=== PATIENT | female | born 1970 | race Caucasian/White ===

== ENCOUNTER → 2016-11-13 | Outpatient (CLI) | payer OTHER | END | disposition home or self-care (01) | LOC: C.PAPS 13:46 | PROVIDERS: ATTEND Obstetrics & Gynecology | DX: Z12.4 Encounter for screening for malignant neoplasm of cervix (principal) ==

== ENCOUNTER 2025-06-26 16:56 | Inpatient (IN) ==
--- NOTE | 2025-06-26 18:00 | Emergency Department Note ---
Impression & Plan Pancreatitis, DKA (diabetic ketoacidosis), High anion gap metabolic acidosis, Sepsis ED Provider Note NAME: JASON STARK AGE: 54 SEX: F : 1970 ARRIVES VIA: Walk-In INFORMANT: Patient ED PROVIDER(S): Anibal Ronquillo MD CHIEF COMPLAINT: Abdominal pain, nausea, vomiting, history of pancreatitis PLAN: Disposition: Admit MEDICAL DECISION MAKING: The patient is a 54-year-old woman with a past medical history of pancreatitis who presents to the emergency department via walk-in for evaluation of fevers, nausea and vomiting with upper and lower abdominal pain as well as left flank pain evolving over the past week. She feels symptoms are reminiscent to her prior episode of pancreatitis and UTI which she reports occurred a couple of years ago. She denies any cough or congestion. She denies any alcohol use. She denies any history of chronic pain. Patient estimates that her prior admission to [facility] and then transferred to [facility] occurred in October 2022. On evaluation patient is uncomfortable but no distress, afebrile apart in the 120s and blood pressure 140s/70s and vital signs otherwise stable. She appears clinically dry. She exhibits mild epigastric and suprapubic tenderness without guarding or rebound. She demonstrates left flank pain to light touch. No rashes. EKG without overt acute ischemia. CXR negative for acute cardiopulmonary process per my personal preliminary review/interpretation. WBC 19K with neutrophilia and left shift. Hemoglobin within normal limits. Platelets 600 K, nonspecific and likely reactive. Initial VBG with acidemia with pH of 7.08 and chemistry with high anion gap metabolic acidosis with anion gap of 22 and bicarbonate of 12 with glucose of 582 and so consistent with DKA. Sodium is 122 but corrects to > 130 given hyperglycemia. Hemoglobin A1c is 14.3 in the setting of the patient reported of not taking any medications for her diabetes recently. Calcium is 13.1 consistent with the patient's clinically dry appearance. LFTs unremarkable. Lipase is elevated at 2500 consistent with pancreatitis. Procalcitonin is elevated at 0.87 consistent with infection. hCG was negative. UA demonstrates WBCs but no bacteria. Empiric antibiotic treatment initiated with IV ceftriaxone. Medical alcohol is undetectable. CT of the abdomen pelvis was performed and demonstrates evidence of pancreatitis without associated complication. The patient was treated for DKA with IV hydration with 2 L of normal saline, >30cc/KG of IV fluids in the setting of suspected component of sepsis. Insulin bolus and drip initiated. Maintenance fluids ordered with Normosol. Upon reevaluation patient did report feeling some improvement though understandably still feeling significantly sick. Case was discussed with Dr. Serna, [facility] hospitalist, who will evaluate the patient for admission. Case additionally reviewed with NIDIA Roberts PA-C. Further management per ICU and admitting team Triage Nursing notes reviewed and agree them. Prior/external medical records reviewed Vital Signs: reviewed Differential diagnosis: Gastroenteritis, food borne illness, infections, appendicitis, diverticulitis, inflammatory bowel disease, obstruction, GI bleed, biliary pathology, volvulus, as well as other pathologies. ER treatment provided: See below. Diagnostics interpreted by me: ECG: Sinus tachycardia, 123 bpm, no ectopy, ST and T wave abnormality, no overt ST elevation or depression, QTc 446, QRS 82. Cardiac Monitoring: An order for continuous cardiac monitoring was placed and demonstrated sinus tachycardia, 123 BPM, no ectopy. Laboratory studies: See below Imaging studies: See below Consultation(s): Dr. Serna [facility] hospitalist Gretchen Diana, TYLER JACOB. HPI: Per MDM. ROS: See above HPI for pertinent positives & negatives. A total of 10 systems reviewed and were otherwise negative. VITALS:See Below PHYSICAL EXAMINATION: GENERAL: Awake, alert, ill-appearing, in no distress HENT: Normocephalic, atraumatic. Oropharynx with dry mucous membranes and otherwise unremarkable. EYES: Normal conjunctiva. Sclera non-icteric. NECK: Supple. No nuchal rigidity. FROM. No JVD. RESPIRATORY: Clear to auscultation. CARDIAC: Tachycardic rate, normal rhythm. Extremities warm and well perfused. Pulses equal. ABDOMEN: Soft, non-distended. Mild epigastric and suprapubic tenderness without guarding or rebound. Left flank tenderness to light touch. MUSCULOSKELETAL: Chest examination reveals no tenderness. The back is symmetrical on inspection without obvious abnormality. There is no CVA tenderness to palpation. No joint edema. LOWER EXTREMITIES: Calves are equal size bilaterally and non-tender. No edema. No discoloration. NEURO: Normal sensorium. No sensory or motor deficits noted. SKIN: No rash or jaundice noted. ED COURSE: Critical Care: I have personally spent greater than 45 minutes of critical care time in the direct management of this patient. This includes bedside care, interpretation of diagnostic studies, and testing, discussion with consultants, patient, and family members, and other required patient management activities. This 45 minutes is in excess of all separately billable procedures. Anibal Ronquillo MD Past Med/Surg History Problem List (Updated 06/27/25 @ 19:46 by Anibal Ronquillo MD) Admitted to intensive care unit Sepsis (Acute) High anion gap metabolic acidosis (Acute) Pancreatitis (Acute) Tobacco abuse Ambulatory dysfunction Malnutrition Lactic acidosis Dehydration HERNANDEZ (acute kidney injury) DKA (diabetic ketoacidosis) (Acute) Uncontrolled diabetes mellitus with hyperglycemia, without long-term current use of insulin DMII (diabetes mellitus, type 2) Peripheral vascular disease Medical History Neuropathy GERD (gastroesophageal reflux disease) Anxiety and depression Surgical History No pertinent past surgical history Social History Smoking Status: Current every day smoker Tobacco Type: Cigarettes Cigarettes Per Day: 10 per day; Hx Alcohol Use: Yes Alcohol type: beer, wine and hard liquor Hx Substance Use: No Preferred Language: Croatian Communication Ability: Effective 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 Beliefs That Will Affect Care: None Current Living Situation: Spouse Other Information That Helps Us Care for You: No Feels Safe at Home: Yes Safety Concerns: Feels Safe At This Time Assistive Devices: Walker and Wheelchair Allergies Allergies Allergy/AdvReac Type Severity Reaction Status Date / Time No Known Allergies Allergy Verified 03/12/25 11:45 Home Meds Home Medications Medication Instructions Recorded Confirmed aspirin 325 mg tablet 325 mg PO BID 05/30/25 05/30/25 cholecalciferol (vitamin D3) 25 25 mcg PO DAILY 05/30/25 05/30/25 mcg (1,000 unit) capsule cyanocobalamin (vitamin B-12) 1,000 mcg PO DAILY 05/30/25 05/30/25 1,000 mcg capsule escitalopram oxalate 10 mg tablet 10 mg PO DAILY 05/30/25 05/30/25 (Lexapro) esomeprazole magnesium 20 mg 20 mg PO DAILY 05/30/25 05/30/25 capsule,delayed release (Nexium) folic acid 0.8 mg capsule 0.4 mg PO DAILY 05/30/25 05/30/25 gabapentin 100 mg capsule 100 mg PO HS 05/30/25 05/30/25 ibuprofen 600 mg tablet 600 mg PO Q8H PRN 05/30/25 05/30/25 magnesium oxide 400 mg (241.3 mg 400 mg PO DAILY 05/30/25 05/30/25 magnesium) tablet (MagOx) Results & Data (ED) Vital Signs Vital Signs - 24 hr 06/26/25 20:00 06/26/25 21:00 Pulse Rate [Apical] 106 H Respiratory Rate 16 Blood Pressure 194/95 H Blood Pressure Mean 152 Pulse Oximetry 97 Oxygen Delivery Method Room Air Laboratory Data Attestation: I reviewed the patient's lab results. 06/27/25 04:28 06/27/25 16:54 Lab Results 06/26/25 06/26/25 06/26/25 Range/Units 17:47 18:30 19:07 WBC 19.18 H (4.8-10.8) K/ul RBC 4.89 (4.20-5.40) M/uL Hgb 13.2 (12.0-16.0) g/dl Hct 40.9 (37.0-47.0) % MCV 83.6 (80.0-100.0) fL MCH 27.0 (25.0-34.0) pg MCHC 32.3 (32.0-36.0) g/dL RDW Std Deviation 44.7 (36.4-46.3) fL RDW Coeff of [place] 14.7 H (11.5-14.5) % Plt Count 608 H (130-400) K/uL MPV 9.7 (9.4-12.4) fL Immature Gran % (Auto) 1.9 % Neut % (Auto) 85.1 % Lymph % (Auto) 8.4 % [place] % (Auto) 4.0 % Eos % (Auto) 0.2 % Baso % (Auto) 0.4 % Neut # (Auto) 16.32 H (1.40-6.50) K/uL Lymph # (Auto) 1.62 (1.20-3.40) K/uL [place] # (Auto) 0.77 H (0.11-0.59) K/uL Eos # (Auto) 0.03 (0.00-0.50) K/uL Baso # (Auto) 0.08 (0.00-0.20) K/uL Immature Gran # (Auto) 0.36 H (0.01-0.20) K/uL PT 10.5 (9.0-12.0) Seconds INR 1.0 (0.9-1.1) APTT 28 (21-31) Seconds PTT Ratio 1.0 VBG pH 7.08 L (7.36-7.41) VBG pCO2 39 (38-50) mmHg VBG pO2 38 mmHg VBG HCO3 12 mmol/L VBG O2 Saturation < 60.0 % VBG Base Excess -17.6 mEq/L Sodium 122 L (136-145) mmol/L Potassium 4.5 (3.5-5.1) mmol/L Chloride 88 L (98-107) mmol/L Carbon Dioxide 12 L (21-32) mmol/L Anion Gap 22 H (3-11) BUN 40 H (6-23) mg/dl Creatinine 1.57 H (0.6-1.2) mg/dl Est Cr Clr Drug Dosing Not Reportable eGFR 38.96 BUN/Creatinine Ratio 25.5 H (10-20) Glucose 582 H* (70-99(Fasting)) mg/dl POC Glucose (70-99) mg/dl Estimat Average Glucose 364 mg/dl Hemoglobin A1c 14.3 H (4.5-5.6) % Osmolality 308 H (280-300) mOsm/kg Lactate (0.4-2.0) mmol/L Calcium 13.1 H* (8.6-10.3) mg/dl Magnesium 1.8 (1.7-2.4) mg/dl Total Bilirubin 0.4 (0.2-1.0) mg/dl Direct Bilirubin 0.1 (0-0.2) mg/dl AST 8 L (13-39) U/L ALT 5 L (7-52) U/L Alkaline Phosphatase 148 H (34-104) U/L Total Protein 9.4 H (6.0-8.3) gm/dl Albumin 4.3 (3.4-5.0) gm/dl Globulin 5.1 H (2.5-4.0) gm/dl Albumin/Globulin Ratio 0.8 L (0.9-2) Lipase 2569 H (11-82) U/L Procalcitonin 0.87 H (0-0.5) ng/ml TSH 1.553 (0.300-4.500) uIu/ml HCG, Qual Negative (Negative) Urine Color Urine Appearance (Clear) Urine pH (4.5-7.5) Ur Specific [place] (1.000-1.030) Urine Protein (Negative) Urine Glucose (UA) (Negative) Urine Ketones (Negative) Urine Blood (Negative) Urine Nitrite (Negative) Urine Bilirubin (Negative) Urine Urobilinogen (Negative) Ur Leukocyte Esterase (Negative) Urine WBC (Auto) (0-5) /hpf Urine RBC (Auto) (0-2) /hpf U Hyaline Cast (Auto) (0-2) /lpf U Epithel Cells (Auto) (0-2) /hpf Urine Bacteria (Auto) (None Seen) Urine Comment Ethyl Alcohol mg/dL < 10.0 (<10.0) mg/dl 06/26/25 06/26/25 06/26/25 Range/Units 19:47 19:48 20:11 WBC (4.8-10.8) K/ul RBC (4.20-5.40) M/uL Hgb (12.0-16.0) g/dl Hct (37.0-47.0) % MCV (80.0-100.0) fL MCH (25.0-34.0) pg MCHC (32.0-36.0) g/dL RDW Std Deviation (36.4-46.3) fL RDW Coeff of [place] (11.5-14.5) % Plt Count (130-400) K/uL MPV (9.4-12.4) fL Immature Gran % (Auto) % Neut % (Auto) % Lymph % (Auto) % [place] % (Auto) % Eos % (Auto) % Baso % (Auto) % Neut # (Auto) (1.40-6.50) K/uL Lymph # (Auto) (1.20-3.40) K/uL [place] # (Auto) (0.11-0.59) K/uL Eos # (Auto) (0.00-0.50) K/uL Baso # (Auto) (0.00-0.20) K/uL Immature Gran # (Auto) (0.01-0.20) K/uL PT (9.0-12.0) Seconds INR (0.9-1.1) APTT (21-31) Seconds PTT Ratio VBG pH (7.36-7.41) VBG pCO2 (38-50) mmHg VBG pO2 mmHg VBG HCO3 mmol/L VBG O2 Saturation % VBG Base Excess mEq/L Sodium (136-145) mmol/L Potassium (3.5-5.1) mmol/L Chloride (98-107) mmol/L Carbon Dioxide (21-32) mmol/L Anion Gap (3-11) BUN (6-23) mg/dl Creatinine (0.6-1.2) mg/dl Est Cr Clr Drug Dosing eGFR BUN/Creatinine Ratio (10-20) Glucose (70-99(Fasting)) mg/dl POC Glucose 534 H* (70-99) mg/dl Estimat Average Glucose mg/dl Hemoglobin A1c (4.5-5.6) % Osmolality (280-300) mOsm/kg Lactate 2.2 H* (0.4-2.0) mmol/L Calcium (8.6-10.3) mg/dl Magnesium (1.7-2.4) mg/dl Total Bilirubin (0.2-1.0) mg/dl Direct Bilirubin (0-0.2) mg/dl AST (13-39) U/L ALT (7-52) U/L Alkaline Phosphatase (34-104) U/L Total Protein (6.0-8.3) gm/dl Albumin (3.4-5.0) gm/dl Globulin (2.5-4.0) gm/dl Albumin/Globulin Ratio (0.9-2) Lipase (11-82) U/L Procalcitonin (0-0.5) ng/ml TSH (0.300-4.500) uIu/ml HCG, Qual (Negative) Urine Color Yellow Urine Appearance Clear (Clear) Urine pH 5.5 (4.5-7.5) Ur Specific [place] 1.026 (1.000-1.030) Urine Protein 1+ H (Negative) Urine Glucose (UA) 3+ H (Negative) Urine Ketones 3+ H (Negative) Urine Blood Trace H (Negative) Urine Nitrite Negative (Negative) Urine Bilirubin Negative (Negative) Urine Urobilinogen Negative (Negative) Ur Leukocyte Esterase Negative (Negative) Urine WBC (Auto) 21-50 H (0-5) /hpf Urine RBC (Auto) 0-2 (0-2) /hpf U Hyaline Cast (Auto) 0-2 (0-2) /lpf U Epithel Cells (Auto) 0-2 (0-2) /hpf Urine Bacteria (Auto) None Seen (None Seen) Urine Comment Ethyl Alcohol mg/dL (<10.0) mg/dl 06/26/25 Range/Units 20:59 WBC (4.8-10.8) K/ul RBC (4.20-5.40) M/uL Hgb (12.0-16.0) g/dl Hct (37.0-47.0) % MCV (80.0-100.0) fL MCH (25.0-34.0) pg MCHC (32.0-36.0) g/dL RDW Std Deviation (36.4-46.3) fL RDW Coeff of [place] (11.5-14.5) % Plt Count (130-400) K/uL MPV (9.4-12.4) fL Immature Gran % (Auto) % Neut % (Auto) % Lymph % (Auto) % [place] % (Auto) % Eos % (Auto) % Baso % (Auto) % Neut # (Auto) (1.40-6.50) K/uL Lymph # (Auto) (1.20-3.40) K/uL [place] # (Auto) (0.11-0.59) K/uL Eos # (Auto) (0.00-0.50) K/uL Baso # (Auto) (0.00-0.20) K/uL Immature Gran # (Auto) (0.01-0.20) K/uL PT (9.0-12.0) Seconds INR (0.9-1.1) APTT (21-31) Seconds PTT Ratio VBG pH (7.36-7.41) VBG pCO2 (38-50) mmHg VBG pO2 mmHg VBG HCO3 mmol/L VBG O2 Saturation % VBG Base Excess mEq/L Sodium (136-145) mmol/L Potassium (3.5-5.1) mmol/L Chloride (98-107) mmol/L Carbon Dioxide (21-32) mmol/L Anion Gap (3-11) BUN (6-23) mg/dl Creatinine (0.6-1.2) mg/dl Est Cr Clr Drug Dosing eGFR BUN/Creatinine Ratio (10-20) Glucose (70-99(Fasting)) mg/dl POC Glucose 423 H* (70-99) mg/dl Estimat Average Glucose mg/dl Hemoglobin A1c (4.5-5.6) % Osmolality (280-300) mOsm/kg Lactate (0.4-2.0) mmol/L Calcium (8.6-10.3) mg/dl Magnesium (1.7-2.4) mg/dl Total Bilirubin (0.2-1.0) mg/dl Direct Bilirubin (0-0.2) mg/dl AST (13-39) U/L ALT (7-52) U/L Alkaline Phosphatase (34-104) U/L Total Protein (6.0-8.3) gm/dl Albumin (3.4-5.0) gm/dl Globulin (2.5-4.0) gm/dl Albumin/Globulin Ratio (0.9-2) Lipase (11-82) U/L Procalcitonin (0-0.5) ng/ml TSH (0.300-4.500) uIu/ml HCG, Qual (Negative) Urine Color Urine Appearance (Clear) Urine pH (4.5-7.5) Ur Specific [place] (1.000-1.030) Urine Protein (Negative) Urine Glucose (UA) (Negative) Urine Ketones (Negative) Urine Blood (Negative) Urine Nitrite (Negative) Urine Bilirubin (Negative) Urine Urobilinogen (Negative) Ur Leukocyte Esterase (Negative) Urine WBC (Auto) (0-5) /hpf Urine RBC (Auto) (0-2) /hpf U Hyaline Cast (Auto) (0-2) /lpf U Epithel Cells (Auto) (0-2) /hpf Urine Bacteria (Auto) (None Seen) Urine Comment Ethyl Alcohol mg/dL (<10.0) mg/dl Administered Medications Aspirin (Aspirin 81 Mg Ectab) 81 mg PO QAM [facility] Stop: 07/27/25 08:59 Last Admin: 06/27/25 08:37 Dose: 81 mg Documented By: YONY Atorvastatin Calcium (Atorvastatin 40 Mg Tab) 40 mg PO QAM [facility]ELL Stop: 07/27/25 08:59 Last Admin: 06/27/25 08:36 Dose: 40 mg Documented By: YONY Heparin Sodium (Porcine) (Heparin Sod 5,000 Unit/0.5 Ml Vial) 5,000 units SQ Q12 ISABELL Stop: 07/27/25 08:59 Last Admin: 06/27/25 10:12 Dose: 5,000 units Documented By: YONY Pantoprazole Sodium (Protonix) 40 mg in 10 mls @ 5 mls/min IV BID [facility] Stop: 07/26/25 22:02 Last Admin: 06/27/25 08:37 Dose: 5 mls/min Documented By: Admin: 06/26/25 23:01 Dose: 5 mls/min Documented By: BRIGID Acetaminophen (Ofirmev) 1,000 mg in 100 mls @ 400 mls/hr IV Q8H ISABELL Stop: 06/30/25 04:59 Last Infusion: 06/27/25 13:36 Dose: Infused Documented By: Admin: 06/27/25 13:21 Dose: 100 mls/hr Documented By: Infusion: 06/27/25 05:11 Dose: Infused Documented By: Admin: 06/27/25 04:49 Dose: 400 mls/hr Documented By: SG Lactated Ringer's (Lr) 1,000 mls @ 100 mls/hr IV .Q10H ISABELL Stop: 06/30/25 13:14 Last Admin: 06/27/25 13:22 Dose: 100 mls/hr Documented By: YONY Insulin Aspart (Insulin Aspart Per Unit Charge) 0 units SC ACHS [facility] Stop: 07/27/25 14:29 Last Admin: 06/27/25 16:08 Dose: Not Given Documented By: Admin: 06/27/25 14:30 Dose: Not Given Documented By: LAF Miscellaneous (Remove Nicoderm Patch) 1 each N/A DAILY@0859 [facility] Stop: 07/27/25 08:58 Last Admin: 06/27/25 08:38 Dose: Not Given Documented By: YONY Morphine Sulfate (Morphine Sulfate 2 Mg/Ml [place]) 2 mg IV Q4H PRN PRN Reason: MOD-SEVERE Pain Stop: 07/11/25 10:09 Last Admin: 06/27/25 15:12 Dose: 2 mg Documented By: YONY Nicotine (Nicotine 7 Mg/24 Hr Tdsy) 1 patch TD [facility] Stop: 07/27/25 08:59 Last Admin: 06/27/25 08:37 Dose: 1 patch Documented By: YONY Ondansetron HCl (Ondansetron Inj 2 Mg/Ml 2 Ml Vial) 4 mg IV Q6H PRN PRN Reason: NAUSEA/VOMITING Stop: 07/26/25 22:02 Last Admin: 06/27/25 15:13 Dose: 4 mg Documented By: YONY Discontinued Medications Amlodipine Besylate (Amlodipine Besylate 5 Mg Tab) [facility] Stop: 07/27/25 08:59 Last Admin: 06/27/25 08:37 Dose: 5 mg Documented By: YONY Amlodipine Besylate (Amlodipine Besylate 5 Mg Tab) 5 mg PO NOW ONE Stop: 06/27/25 11:01 Last Admin: 06/27/25 11:38 Dose: 5 mg Documented By: YONY Sodium Chloride (Nss) 1,000 mls @ 999 mls/hr IV .Q1H1M ONE Stop: 06/26/25 18:58 Last Infusion: 06/26/25 21:07 Dose: Infused Documented By: Admin: 06/26/25 18:06 Dose: 999 mls/hr Documented By: jasmin Acetaminophen (Ofirmev) 1,000 mg in 100 mls @ 400 mls/hr IV NOW STA Stop: 06/26/25 18:12 Last Infusion: 06/26/25 18:55 Dose: Infused Documented By: Admin: 06/26/25 18:05 Dose: 400 mls/hr Documented By: jasmin Famotidine (Pepcid 20mg Iv Push) 20 mg in 5 mls @ 2.5 mls/min IV NOW STA Stop: 06/26/25 17:59 Last Admin: 06/26/25 18:06 Dose: 2.5 mls/min Documented By: jasmin Ceftriaxone Sodium (Rocephin) 2,000 mg in 50 mls @ 100 mls/hr IV NOW STA Stop: 06/26/25 18:42 Last Infusion: 06/26/25 18:55 Dose: Infused Documented By: Admin: 06/26/25 18:34 Dose: 100 mls/hr Documented By: jasmin Sodium Chloride (Nss) 1,000 mls @ 999 mls/hr IV .Q1H1M ONE Stop: 06/26/25 19:13 Last Infusion: 06/26/25 21:07 Dose: Infused Documented By: Admin: 06/26/25 18:54 Dose: 999 mls/hr Documented By: KITA Parenteral Electrolytes (Plasma-Lyte A Ph 7.4) 1,000 mls @ 250 mls/hr IV .Q4H ISABELL Stop: 06/26/25 23:29 Last Infusion: 06/27/25 01:00 Dose: Infused Documented By: Admin: 06/26/25 20:46 Dose: 250 mls/hr Documented By: KITA Insulin Human Regular 250 (units/ Sodium Chloride) 250 mls @ 0 mls/hr IV .Q0M ISABELL; Protocol Stop: 07/26/25 19:29 Last Titration: 06/27/25 13:23 Dose: Infused Documented By: YONY Co-signed By: JB Titration: 06/27/25 07:21 Dose: 6 units/hr, 6 mls/hr Documented By: SG Co-signed By: LAF Titration: 06/27/25 06:03 Dose: 6 units/hr, 6 mls/hr Documented By: SG Co-signed By: SURJIT Titration: 06/27/25 05:13 Dose: 5 units/hr, 5 mls/hr Documented By: SG Co-signed By: [id number] Titration: 06/27/25 04:12 Dose: 5 units/hr, 5 mls/hr Documented By: SG Co-signed By: [id number] Titration: 06/27/25 03:12 Dose: 4.2 units/hr, 4.2 mls/hr Documented By: SG Co-signed By: SKS Titration: 06/27/25 02:07 Dose: 4.2 units/hr, 4.2 mls/hr Documented By: SG Co-signed By: [id number] Titration: 06/27/25 01:04 Dose: 3.5 units/hr, 3.5 mls/hr Documented By: SG Co-signed By: [id number] Titration: 06/27/25 00:11 Dose: 3.5 units/hr, 3.5 mls/hr Documented By: SG Co-signed By: [id number] Titration: 06/26/25 23:09 Dose: 3.5 units/hr, 3.5 mls/hr Documented By: SG Co-signed By: [id number] Titration: 06/26/25 22:19 Dose: 4.4 units/hr, 4.4 mls/hr Documented By: SURJIT Co-signed By: [id number] Titration: 06/26/25 21:03 Dose: 5.5 units/hr, 5.5 mls/hr Documented By: KITA Co-signed By: Admin: 06/26/25 19:59 Dose: 5.5 units/hr, 5.5 mls/hr Documented By: KITA Co-signed By: KML Lactated Ringer's (Lr) 1,000 mls @ 999 mls/hr IV .Q1H1M ONE Stop: 06/26/25 21:51 Last Infusion: 06/26/25 22:40 Dose: Infused Documented By: Admin: 06/26/25 21:33 Dose: 999 mls/hr Documented By: KML Potassium Chloride (K Solitario / Wtr) 10 meq in 100 mls @ 100 mls/hr IV Q1H ISABELL Stop: 06/27/25 02:59 Last Infusion: 06/27/25 03:50 Dose: Infused Documented By: Admin: 06/27/25 02:41 Dose: 100 mls/hr Documented By: Infusion: 06/27/25 02:39 Dose: Infused Documented By: Admin: 06/27/25 01:39 Dose: 100 mls/hr Documented By: Infusion: 06/27/25 01:36 Dose: Infused Documented By: Admin: 06/27/25 00:36 Dose: 100 mls/hr Documented By: Infusion: 06/27/25 00:36 Dose: Infused Documented By: Admin: 06/26/25 23:37 Dose: 100 mls/hr Documented By: SG Acetaminophen (Ofirmev) 1,000 mg in 100 mls @ 400 mls/hr IV NOW STA Stop: 06/26/25 23:13 Last Infusion: 06/27/25 00:02 Dose: Infused Documented By: Admin: 06/26/25 23:35 Dose: 400 mls/hr Documented By: SG Potassium Chloride 40 meq/ (Dextrose/Sodium Chloride) 1,020 mls @ 200 mls/hr IV .Q5H6M ISABELL Stop: 06/29/25 23:29 Last Admin: 06/27/25 13:40 Dose: Not Given Documented By: Infusion: 06/27/25 13:32 Dose: Infused Documented By: Infusion: 06/27/25 05:29 Dose: Infused Documented By: Admin: 06/26/25 23:43 Dose: 200 mls/hr Documented By: SG Potassium Chloride (K Solitario / Wtr) 10 meq in 100 mls @ 100 mls/hr IV Q1H ISABELL Stop: 06/27/25 03:44 Last Infusion: 06/27/25 05:45 Dose: Infused Documented By: Admin: 06/27/25 04:48 Dose: 100 mls/hr Documented By: Infusion: 06/27/25 04:44 Dose: Infused Documented By: Admin: 06/27/25 03:44 Dose: 100 mls/hr Documented By: SG Magnesium Sulfate/Dextrose (Magnesium Sulfate / D5w) 1 gm in 100 mls @ 50 mls/hr IV Q2H ISABELL Stop: 06/27/25 13:14 Last Infusion: 06/27/25 13:32 Dose: Infused Documented By: Admin: 06/27/25 11:37 Dose: 50 mls/hr Documented By: Infusion: 06/27/25 10:37 Dose: Infused Documented By: Admin: 06/27/25 08:37 Dose: 50 mls/hr Documented By: Infusion: 06/27/25 08:37 Dose: Infused Documented By: Admin: 06/27/25 07:21 Dose: 50 mls/hr Documented By: Infusion: 06/27/25 07:21 Dose: Infused Documented By: Admin: 06/27/25 05:39 Dose: 50 mls/hr Documented By: SG Dextrose/Sodium Chloride (D5w And 1/2nss) 1,000 mls @ 150 mls/hr IV .Q6H40M ISABELL Stop: 06/30/25 05:14 Last Admin: 06/27/25 13:44 Dose: Not Given Documented By: Infusion: 06/27/25 13:32 Dose: Infused Documented By: Admin: 06/27/25 05:41 Dose: 150 mls/hr Documented By: BRIGID Sodium Phosphate 15 mmol/ (Sodium Chloride) 255 mls @ 100 mls/hr IV ONE ONE Stop: 06/27/25 08:32 Last Infusion: 06/27/25 13:39 Dose: Infused Documented By: Admin: 06/27/25 05:54 Dose: 100 mls/hr Documented By: BRIGID Insulin Aspart (Insulin Aspart Per Unit Charge) 0 units SC ACHS ISABELL Stop: 07/27/25 07:29 Last Admin: 06/27/25 11:41 Dose: Not Given Documented By: Admin: 06/27/25 08:38 Dose: Not Given Documented By: YONY Insulin Glargine (Lantus Per Unit Charge) 30 units SC ONE ONE Stop: 06/27/25 10:31 Last Admin: 06/27/25 11:40 Dose: 30 units Documented By: YONY Co-signed By: KELECHI Insulin Human Regular (Novolin-R Bolus From Bag) 5.5 units IV ONE ONE Stop: 06/26/25 19:46 Last Admin: 06/26/25 20:03 Dose: 5.5 units Documented By: KITA Co-signed By: MOLLY Insulin Human Regular (Novolin-R Bolus From Bag) 10 units IV ONE ONE Stop: 06/26/25 21:01 Last Admin: 06/26/25 21:31 Dose: 10 units Documented By: MOLLY Co-signed By: FANG Labetalol HCl (Labetalol Hcl Iv 5 Mg/Ml 20ml) 5 mg IV NOW STA Stop: 06/27/25 00:35 Last Admin: 06/27/25 00:54 Dose: 5 mg Documented By: BRIGID Labetalol HCl (Labetalol Hcl Iv 5 Mg/Ml 20ml) 5 mg IV NOW STA Stop: 06/27/25 03:22 Last Admin: 06/27/25 03:32 Dose: 5 mg Documented By: BRIGID Bone (Dka Goal Range 150-250 Mg/Dl) 1 each N/A ONE ONE Stop: 06/26/25 19:24 Last Admin: 06/26/25 21:21 Dose: Not Given Documented By: MBL Miscellaneous (Stat Iv Infusion Titration Per Protocol) 1 each N/A NOW STA Stop: 06/26/25 19:24 Last Admin: 06/26/25 21:22 Dose: Not Given Documented By: MBL Miscellaneous (Icu Protocol For Hyperglycemia) 1 each N/A ACHS ISABELL Stop: 06/29/25 07:29 Last Admin: 06/27/25 11:41 Dose: Not Given Documented By: Admin: 06/27/25 08:34 Dose: Not Given Documented By: LAF Morphine Sulfate (Morphine Sulfate 4 Mg/Ml 1 Ml Carp\Vial) 4 mg IV NOW STA Stop: 06/26/25 18:11 Last Admin: 06/26/25 18:34 Dose: 4 mg Documented By: erm Morphine Sulfate (Morphine Sulfate 4 Mg/Ml 1 Ml Carp\Vial) 4 mg IV NOW STA Stop: 06/26/25 19:52 Last Admin: 06/26/25 20:08 Dose: 4 mg Documented By: KITA Morphine Sulfate (Morphine Sulfate 2 Mg/Ml Carp) 2 mg IV NOW STA Stop: 06/26/25 22:57 Last Admin: 06/26/25 23:37 Dose: 2 mg Documented By: SG Ondansetron HCl (Ondansetron Inj 2 Mg/Ml 2 Ml Vial) 4 mg IV NOW STA Stop: 06/26/25 18:00 Last Admin: 06/26/25 18:06 Dose: 4 mg Documented By: erm Imaging Data Radiologist's Impression: Chest X-Ray 06/26/25 17:09 Chest radiograph, one view History: Chest pain Comparison: None Findings: Single AP view of the chest performed. No focal consolidation or pleural effusion. No pneumothorax. The cardiomediastinal silhouette is within normal limits. Normal pulmonary vascularity. No evidence for lymphadenopathy. No visualized bony or soft tissue abnormality. Chronic left rib deformities. Impression: Normal chest radiograph Electronically signed by Musa Ramos 06-26-2025 6:02 PM Abdomen/Pelvis CT 06/26/25 18:52 EXAMINATION: Abdomen and pelvis CT without CLINICAL HISTORY: Abdominal pain, nausea and vomiting, pancreatitis PRIORS: None TECHNIQUE: Contiguous axial images were obtained through the abdomen and pelvis without the use of intravenous contrast. Sagittal and coronal reformations are supplied. FINDINGS: No pleural effusion. Evaluation of solid organs is limited without the use of intravenous contrast. Allowing for this, moderate peripancreatic inflammatory change is noted with multiple small peripancreatic lymph nodes without adenopathy. A pseudocyst is not identified. Pancreatic morphology and noncontrast enhanced appearance is within normal limits. No ductal dilatation. The splenic vein patency and gastroduodenal artery are not evaluated. Note large volume of ascites. Heterogeneous fatty infiltration of the liver noted. The stomach is under distended. The spleen, aorta and IVC are morphologically unremarkable. A left adrenal mass is present measuring 1.9 cm with rounded morphology and fat attenuation. Prominent, nonpathologically enlarged retroperitoneal lymph nodes present measuring up to 0.9 cm. Moderate atherosclerotic disease of the abdominal aorta. Urinary bladder distends normally. Uterus is present. No large adnexal cyst. Moderate sigmoid colon diverticulosis. No pericolonic inflammatory change. No bowel obstruction. Appendix is normal. No extraluminal gas. Urinary bladder has a normal appearance. No obstructing renal calculus. Straightening of the lumbar spine is noted. IMPRESSION: 1. Moderate peripancreatic inflammatory change, representing known acute pancreatitis, with no acute complication, allowing for noncontrast enhanced technique. 2. 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 3. Straightening of the lumbar spine compatible withmuscle spasm. 4. Moderate sigmoid colon with no pericolonic inflammatory change. Electronically signed by Rain Miller 06-26-2025 7:53 PM Discharge Plan Visit Data Chief Complaint: Illness Stated Complaint: ILLNESS ED Provider: Anibal Ronquillo Discharge Problem: Pancreatitis, DKA (diabetic ketoacidosis), High anion gap metabolic acidosis, Sepsis Patient Disposition: Admitted As Inpatient Condition: Critical Discharge Instructions Interventions: ED Discharge Assessment Last Done: 06/26/25 21:43 Discharge Problem: Pancreatitis Qualifiers: Chronicity: acute Pancreatitis type: unspecified pancreatitis type Acute pancreatitis complication: unspecified Qualified Code(s): K85.90 - Acute pancreatitis without necrosis or infection, unspecified DKA (diabetic ketoacidosis) Qualifiers: Diabetes mellitus type: other specified (including YANELY) Diabetes mellitus complication detail: without coma Qualified Code(s): E13.10 - Other specified diabetes mellitus with ketoacidosis without coma Sepsis Qualifiers: Sepsis type: sepsis due to unspecified organism Sepsis acute organ dysfunction status: with acute organ dysfunction Severe sepsis acute organ dysfunction type: acute renal failure Acute renal failure type: unspecified Severe sepsis shock status: without septic shock Qualified Code(s): A41.9 - Sepsis, unspecified organism
[2025-06-26 18:04] LABS: Hematocrit (blood only) 40.9 % (37.0-47.0); Hemoglobin 13.2 g/dl (12.0-16.0); Immature Granulocytes # (auto) 0.36 K/uL (0.01-0.20); Immature Granulocytes % (auto) 1.9 %; Mean Corpuscular Hemoglobin 27.0 pg (25.0-34.0); Mean Corpuscular Volume 83.6 fL (80.0-100.0); Platelet Count 608 K/uL (130-400); RDW Standard Deviation 44.7 fL (36.4-46.3); Red Blood Count 4.89 M/uL (4.20-5.40); White Blood Count 19.18 K/ul (4.8-10.8)
[2025-06-26] MEDS: ACETAMINOPHEN 1,000 MG/100 ML VIAL IV STA ×2 (18:05→23:35)
[2025-06-26] MEDS: FAMOTIDINE 20MG IV PUSH 20 MG/5 ML SYR IV STA (18:06)
[2025-06-26] MEDS: ONDANSETRON INJ 2 MG/ML 2 ML VIAL IV STA (18:06)
[2025-06-26] MEDS: SODIUM CHLORIDE 0.9% 1,000 ML IV ONE ×2 (18:06→18:54)
[2025-06-26 18:12] LABS: INR 1.0 (0.9-1.1); Partial Thromboplastin Time 28 Seconds (21-31); Prothrombin Time 10.5 Seconds (9.0-12.0)
[2025-06-26 18:17] LABS: Pregnancy Test, Serum Negative (Negative)
[2025-06-26 18:33] LABS: Alanine Aminotransferase 5 U/L (7-52); Albumin Globulin Ratio 0.8 (0.9-2); Alkaline Phosphatase 148 U/L (34-104); Anion Gap 22 (3-11); Bilirubin,Total 0.4 mg/dl (0.2-1.0); Blood Urea Nitrogen 40 mg/dl (6-23); Calcium 13.1 mg/dl (8.6-10.3); Carbon Dioxide 12 mmol/L (21-32); Chloride 88 mmol/L (98-107); Globulin 5.1 gm/dl (2.5-4.0); Glucose 582 mg/dl (70-99(Fasting)); Magnesium 1.8 mg/dl (1.7-2.4); Potassium 4.5 mmol/L (3.5-5.1); Sodium 122 mmol/L (136-145); Total Protein 9.4 gm/dl (6.0-8.3)
[2025-06-26] MEDS: MoRPHine SULFATE 4 MG/ML 1 ML CARP\\VIAL IV STA ×2 (18:34→20:08)
[2025-06-26] MEDS: cefTRIAXone SODIUM 2,000 MG/50 ML BAG IV STA (18:34)
[2025-06-26 18:48] LABS: Lipase 2569 U/L (11-82)
[2025-06-26 19:13] LABS: Base Excess VBG -17.6 mEq/L; HCO3 VBG 12 mmol/L; Oxygen Saturation VBG < 60.0 %; PCO2 VBG 39 mmHg (38-50); PO2 VBG 38 mmHg; pH VBG 7.08 (7.36-7.41)
[2025-06-26 19:25] LABS: Thyroid Stimulating Hormone 1.553 uIu/ml (0.300-4.500)
[2025-06-26] MEDS ORDERED: GLUCOSE 40% GEL 15 GM TUBE PO PRN (19:45)
[2025-06-26] MEDS ORDERED: GLUCAGON FOR INJ 1 MG VIAL SQ PRN (19:45)
[2025-06-26] MEDS ORDERED: DEXTROSE 50% 50 ML SYRINGE IV PRN (19:45)
[2025-06-26] MEDS ORDERED: GLUCOSE 10 TAB/TUBE PO PRN (19:45)
[2025-06-26] MEDS ORDERED: CARBOHYDRATES FOR HYPOGLYCEMIA PO PRN (19:45)
--- NOTE | 2025-06-26 19:53 | CT Scan Report ---
EXAMINATION: Abdomen and pelvis CT without CLINICAL HISTORY: Abdominal pain, nausea and vomiting, pancreatitis PRIORS: None TECHNIQUE: Contiguous axial images were obtained through the abdomen and pelvis without the use of intravenous contrast. Sagittal and coronal reformations are supplied. FINDINGS: No pleural effusion. Evaluation of solid organs is limited without the use of intravenous contrast. Allowing for this, moderate peripancreatic inflammatory change is noted with multiple small peripancreatic lymph nodes without adenopathy. A pseudocyst is not identified. Pancreatic morphology and noncontrast enhanced appearance is within normal limits. No ductal dilatation. The splenic vein patency and gastroduodenal artery are not evaluated. Note large volume of ascites. Heterogeneous fatty infiltration of the liver noted. The stomach is under distended. The spleen, aorta and IVC are morphologically unremarkable. A left adrenal mass is present measuring 1.9 cm with rounded morphology and fat attenuation. Prominent, nonpathologically enlarged retroperitoneal lymph nodes present measuring up to 0.9 cm. Moderate atherosclerotic disease of the abdominal aorta. Urinary bladder distends normally. Uterus is present. No large adnexal cyst. Moderate sigmoid colon diverticulosis. No pericolonic inflammatory change. No bowel obstruction. Appendix is normal. No extraluminal gas. Urinary bladder has a normal appearance. No obstructing renal calculus. Straightening of the lumbar spine is noted. IMPRESSION: 1. Moderate peripancreatic inflammatory change, representing known acute pancreatitis, with no acute complication, allowing for noncontrast enhanced technique. 2. 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 3. Straightening of the lumbar spine compatible withmuscle spasm. 4. Moderate sigmoid colon with no pericolonic inflammatory change. Electronically signed by Rain Miller 06-26-2025 7:53 PM
[2025-06-26] MEDS: INSULIN REGULAR 250 UNITS in SODIUM CHLORIDE 0.9% 247.5 ML IV SCH (19:59)
[2025-06-26] MEDS: NovoLIN-R BOLUS FROM BAG IV ONE ×2 (20:03→21:31)
[2025-06-26 20:28] LABS: Appearance Urine Clear (Clear); Bacteria Urine Automated None Seen (None Seen); Cast Urine Automated 0-2 /lpf (0-2); Epithelial Cell Urine Auto 0-2 /hpf (0-2); Glucose Urine UA 3+ (Negative); RBC Urine Automated 0-2 /hpf (0-2); WBC Urine Automated 21-50 /hpf (0-5)
[2025-06-26 20:28] LABS: Hemoglobin A1C 14.3 % (4.5-5.6)
[2025-06-26] MEDS: PLASMA-LYTE A 1,000 ML IV SCH (20:46)
[2025-06-26] MEDS ORDERED: NovoLIN-R INSULIN PER UNIT CHARGE IV STA (20:53)
[2025-06-26] MEDS: DKA GOAL RANGE 150-250 mg/dl ONE (21:21)
[2025-06-26] MEDS: STAT IV Infusion **Titration per Protocol STA (21:22)
--- NOTE | 2025-06-26 21:30 | History & Physical Report ---
Date of Service June 26, 2025 Assessment & Plan (1) Sepsis: (2) Pancreatitis: (3) DKA (diabetic ketoacidosis): (4) HERNANDEZ (acute kidney injury): Plan The patient is a 54-year-old female with a past medical history including diabetes mellitus, PAD, uncontrolled diabetes mellitus, B12 deficiency, anxiety, GERD, history of pancreatitis, and tobacco abuse. The patient presents to the emergency department with complaint of fevers, nausea, vomiting, generalized abdominal pain, and left flank pain worsening over the past week. She reports that the symptoms are similar to previous episodes of pancreatitis and urinary tract infection which she has had in the past, several years ago. Workup in the emergency department included an abnormal lipase of 2569, hemoglobin A1c 14.3, calcium 13.1, sodium 122, glucose 582, creatinine 1.57. Imaging included a CT scan of abdomen pelvis suggestive of acute pancreatitis. By the emergency department she was started on an insulin drip, was given normal saline 2 L IV bolus, Tylenol 1 g IV, famotidine 20 mg IV, Zofran 4 mg IV, morphine 4 mg IV x 2, and ceftriaxone 2 g IV. She was then referred for evaluation for admission. Sepsis- Associated with DKA/pancreatitis/dehydration/hypercalcemia and acute kidney injury Admitted to the intensive care unit Consult ICU team DKA- Received 2 L normal saline in the ED Continue with more IV fluid rehydration per the ICU Continue insulin drip and adjustments per ICU N.p.o. at this time Hemoglobin A1c 14.3 indicating significant lack of control Pancreatitis- Lipase 2569 CT scan abdomen and pelvis suggestive of acute pancreatitis IV fluid rehydration as above, pain control with acetaminophen IV Zofran 4 mg IV every 6 hours as needed Acute kidney injury- Creatinine 1.57, with baseline 0.79 IV fluids as above, and follow labs serially Tobacco abuse- Cessation counseling Nicotine patch GERD- Change Nexium to pantoprazole IV History of Present Illness Chief Complaint: The patient presents to the emergency department with complaint of fevers, nausea, vomiting, generalized abdominal pain, and left flank pain worsening over the past week. She reports that the symptoms are similar to previous episodes of pancreatitis and urinary tract infection which she has had in the past, several years ago. Workup in the emergency department included an abnormal lipase of 2569, hemoglobin A1c 14.3, calcium 13.1, sodium 122, glucose 582, creatinine 1.57. Imaging included a CT scan of abdomen pelvis suggestive of acute pancreatitis. Primary Care Provider: Suzy Burdick The patient is a 54-year-old female with a past medical history including diabetes mellitus, PAD, uncontrolled diabetes mellitus, B12 deficiency, anxiety, GERD, history of pancreatitis, and tobacco abuse. The patient presents to the emergency department with complaint of fevers, nausea, vomiting, generalized abdominal pain, and left flank pain worsening over the past week. She reports that the symptoms are similar to previous episodes of pancreatitis and urinary tract infection which she has had in the past, several years ago. Workup in the emergency department included an abnormal lipase of 2569, hemoglobin A1c 14.3, calcium 13.1, sodium 122, glucose 582, creatinine 1.57. Imaging included a CT scan of abdomen pelvis suggestive of acute pancreatitis. By the emergency department she was started on an insulin drip, was given normal saline 2 L IV bolus, Tylenol 1 g IV, famotidine 20 mg IV, Zofran 4 mg IV, morphine 4 mg IV x 2, and ceftriaxone 2 g IV. She was then referred for evaluation for admission Allergies Allergy/AdvReac Type Severity Reaction Status Date / Time No Known Allergies Allergy Verified 03/12/25 11:45 Home Medications Medication Instructions Recorded Confirmed Type aspirin 325 mg tablet 325 mg PO BID 05/30/25 05/30/25 History cholecalciferol (vitamin D3) 25 25 mcg PO DAILY 05/30/25 05/30/25 History mcg (1,000 unit) capsule cyanocobalamin (vitamin B-12) 1,000 mcg PO DAILY 05/30/25 05/30/25 History 1,000 mcg capsule escitalopram oxalate 10 mg tablet 10 mg PO DAILY 05/30/25 05/30/25 History (Lexapro) esomeprazole magnesium 20 mg 20 mg PO DAILY 05/30/25 05/30/25 History capsule,delayed release (Nexium) folic acid 0.8 mg capsule 0.4 mg PO DAILY 05/30/25 05/30/25 History gabapentin 100 mg capsule 100 mg PO HS 05/30/25 05/30/25 History ibuprofen 600 mg tablet 600 mg PO Q8H PRN 05/30/25 05/30/25 History magnesium oxide 400 mg (241.3 mg 400 mg PO DAILY 05/30/25 05/30/25 History magnesium) tablet (MagOx) Past Med/Surg History Problem List (Updated 06/27/25 @ 04:08 by Shady Serna MD) Admitted to intensive care unit Sepsis (Acute) High anion gap metabolic acidosis (Acute) Pancreatitis (Acute) Tobacco abuse Ambulatory dysfunction Malnutrition Lactic acidosis Dehydration HERNANDEZ (acute kidney injury) DKA (diabetic ketoacidosis) (Acute) Uncontrolled diabetes mellitus with hyperglycemia, without long-term current use of insulin DMII (diabetes mellitus, type 2) Peripheral vascular disease Medical History Neuropathy GERD (gastroesophageal reflux disease) Anxiety and depression Surgical History No pertinent past surgical history Social History Smoking Status: Current every day smoker Tobacco Type: Cigarettes Cigarettes Per Day: 10 per day; Hx Alcohol Use: Yes Alcohol type: beer, wine and hard liquor Hx Substance Use: No Preferred Language: Divehi Communication Ability: Effective Special Events Assistant Required: No Beliefs That Will Affect Care: None Current Living Situation: Spouse Other Information That Helps Us Care for You: No Feels Safe at Home: Yes Safety Concerns: Feels Safe At This Time Assistive Devices: Walker and Wheelchair Review of Systems Review of Systems: The patient denies chest pain, palpitations, cough, lower extremity swelling, sore throat, vomiting, blood in urine or stool, dysuria, urinary frequency or urgency, lightheadedness, dizziness, loss of consciousness, rash, abnormal bruising or bleeding, focal weakness, numbness or tingling in arms or legs, back or neck pain, or night sweats. The review of systems is otherwise negative other than for that already noted above, and at least 10 systems have been reviewed. Physical Exam Physical Exam: The patient is awake, lethargic, normocephalic and atraumatic, lying in bed and in no acute distress. HEENT--PERRL, EOMI, mucous membranes and oropharynx dry. Neck--supple. No JVD. No bruits. Thyroid normal, trachea midline, no adenopathy. Heart--normal S1 and S2. No murmurs, rubs or gallops. Lungs--clear bilaterally, no respiratory distress, no accessory muscle use. Abdomen--normal bowel sounds and soft. Nontender. Nondistended Extremities--no cyanosis or clubbing. No edema. Dermatologic--normal skin turgor, normal color, no abnormal lymph nodes, no rash. Neurologic--cranial nerves II through XII grossly intact. Rheumatologic--normal range of motion. Psychiatric--lethargic Results & Data Results & Data Vital Signs (Past 12 Hours) Vital Signs Temp Pulse Pulse Resp BP BP Pulse Ox 06/26/25 20:00 106 H 16 97 06/26/25 18:09 113 H 06/26/25 18:02 114 H 12 188/96 H 99 06/26/25 17:03 36.3 C L 126 H 18 143/77 H 94 O2 Del Method 06/26/25 20:00 Room Air 06/26/25 18:09 06/26/25 18:02 06/26/25 17:03 Room Air Laboratory Results Laboratory Results WBC 19.18 K/ul (4.8-10.8) H 06/26/25 17:47 RBC 4.89 M/uL (4.20-5.40) 06/26/25 17:47 Hgb 13.2 g/dl (12.0-16.0) 06/26/25 17:47 POC Hgb 9.9 g/dl (12.0-16.0) L 06/26/25 21:45 Hct 40.9 % (37.0-47.0) 06/26/25 17:47 POC Hct 29 % (37-47) L 06/26/25 21:45 MCV 83.6 fL (80.0-100.0) 06/26/25 17:47 MCH 27.0 pg (25.0-34.0) 06/26/25 17:47 MCHC 32.3 g/dL (32.0-36.0) 06/26/25 17:47 RDW Std Deviation 44.7 fL (36.4-46.3) 06/26/25 17:47 RDW Coeff of [place] 14.7 % (11.5-14.5) H 06/26/25 17:47 Plt Count 608 K/uL (130-400) H 06/26/25 17:47 MPV 9.7 fL (9.4-12.4) 06/26/25 17:47 Immature Gran % (Auto) 1.9 % 06/26/25 17:47 Neut % (Auto) 85.1 % 06/26/25 17:47 Lymph % (Auto) 8.4 % 06/26/25 17:47 [place] % (Auto) 4.0 % 06/26/25 17:47 Eos % (Auto) 0.2 % 06/26/25 17:47 Baso % (Auto) 0.4 % 06/26/25 17:47 Neut # (Auto) 16.32 K/uL (1.40-6.50) H 06/26/25 17:47 Lymph # (Auto) 1.62 K/uL (1.20-3.40) 06/26/25 17:47 [place] # (Auto) 0.77 K/uL (0.11-0.59) H 06/26/25 17:47 Eos # (Auto) 0.03 K/uL (0.00-0.50) 06/26/25 17:47 Baso # (Auto) 0.08 K/uL (0.00-0.20) 06/26/25 17:47 Immature Gran # (Auto) 0.36 K/uL (0.01-0.20) H 06/26/25 17:47 PT 10.5 Seconds (9.0-12.0) 06/26/25 17:47 INR 1.0 (0.9-1.1) 06/26/25 17:47 APTT 28 Seconds (21-31) 06/26/25 17:47 PTT Ratio 1.0 06/26/25 17:47 Specimen Type Arterial 06/26/25 21:45 Sample Site L Radial 06/26/25 21:45 POC pH 7.25 (7.35-7.45) L 06/26/25 21:45 POC pCO2 29 mmHg (35-46) L 06/26/25 21:45 POC pO2 98 mmHg (80-95) H 06/26/25 21:45 POC HCO3 13 ansley/L (19-24) L 06/26/25 21:45 POC Total CO2 14 mmol/L (24-31) L 06/26/25 21:45 POC Base Excess -15.0 ansley/L (-9-1.8) L 06/26/25 21:45 O2 Sat Pulse Oximetry 96 06/26/25 21:45 ABG pH (Temp Correct) 7.245 (7.35-7.45) L 06/26/25 21:45 ABG pCO2 (Temp Corrct 29 mmHg (35-46) L 06/26/25 21:45 POC ABG pO2 at Pt Temp 98 06/26/25 21:45 POC ABG O2 Sat 97.0 % (90-95) H 06/26/25 21:45 Zen Test Pass 06/26/25 21:45 VBG pH 7.08 (7.36-7.41) L 06/26/25 19:07 VBG pCO2 39 mmHg (38-50) 06/26/25 19:07 VBG pO2 38 mmHg 06/26/25 19:07 VBG HCO3 12 mmol/L 06/26/25 19:07 VBG O2 Saturation < 60.0 % 06/26/25 19:07 VBG Base Excess -17.6 mEq/L 06/26/25 19:07 O2 Delivery Device Room Air 06/26/25 21:45 POC Sodium 131 mmol/L (135-144) L 06/26/25 21:45 Sodium 128 mmol/L (136-145) L 06/27/25 00:56 POC Potassium 3.3 mmol/L (3.3-5.0) 06/26/25 21:45 Potassium 3.7 mmol/L (3.5-5.1) 06/27/25 00:56 Chloride 103 mmol/L (98-107) 06/27/25 00:56 Carbon Dioxide 17 mmol/L (21-32) L 06/27/25 00:56 Anion Gap 8 (3-11) 06/27/25 00:56 BUN 32 mg/dl (6-23) H 06/27/25 00:56 Creatinine 1.21 mg/dl (0.6-1.2) H 06/27/25 00:56 Est Cr Clr Drug Dosing 40.1 ml/min 06/27/25 00:56 eGFR 53.26 06/27/25 00:56 BUN/Creatinine Ratio 26.4 (10-20) H 06/27/25 00:56 Glucose 241 mg/dl (70-99(Fasting)) H 06/27/25 00:56 POC Glucose 259 mg/dl (70-99) H 06/27/25 03:07 Estimat Average Glucose 364 mg/dl 06/26/25 17:47 Hemoglobin A1c 14.3 % (4.5-5.6) H 06/26/25 17:47 Osmolality 308 mOsm/kg (280-300) H 06/26/25 17:47 Lactate 2.0 mmol/L (0.4-2.0) 06/26/25 22:53 Calcium 10.5 mg/dl (8.6-10.3) H 06/27/25 00:56 Ionized Calcium 1.62 mmol/L (1.12-1.32) H* 06/26/25 22:53 Phosphorus 2.5 mg/dl (2.5-4.9) 06/27/25 00:56 Magnesium 1.8 mg/dl (1.7-2.4) 06/26/25 17:47 Total Bilirubin 0.4 mg/dl (0.2-1.0) 06/26/25 17:47 Direct Bilirubin 0.1 mg/dl (0-0.2) 06/26/25 17:47 AST 8 U/L (13-39) L 06/26/25 17:47 ALT 5 U/L (7-52) L 06/26/25 17:47 Alkaline Phosphatase 148 U/L (34-104) H 06/26/25 17:47 Total Creatine Kinase 22 U/L (26-192) L 06/26/25 21:34 Total Protein 9.4 gm/dl (6.0-8.3) H 06/26/25 17:47 Albumin 4.3 gm/dl (3.4-5.0) 06/26/25 17:47 Globulin 5.1 gm/dl (2.5-4.0) H 06/26/25 17:47 Albumin/Globulin Ratio 0.8 (0.9-2) L 06/26/25 17:47 Triglycerides 421 mg/dl (0-150) H 06/26/25 21:34 Lipase 2569 U/L (11-82) H 06/26/25 17:47 Procalcitonin 0.87 ng/ml (0-0.5) H 06/26/25 17:47 TSH 1.553 uIu/ml (0.300-4.500) 06/26/25 17:47 HCG, Qual Negative (Negative) 06/26/25 17:47 PTH Intact 5.7 pg/ml (12.0-88.0) L 06/26/25 21:34 Urine Color Yellow 06/26/25 19:48 Urine Appearance Clear (Clear) 06/26/25 19:48 Urine pH 5.5 (4.5-7.5) 06/26/25 19:48 Ur Specific [place] 1.026 (1.000-1.030) 06/26/25 19:48 Urine Protein 1+ (Negative) H 06/26/25 19:48 Urine Glucose (UA) 3+ (Negative) H 06/26/25 19:48 Urine Ketones 3+ (Negative) H 06/26/25 19:48 Urine Blood Trace (Negative) H 06/26/25 19:48 Urine Nitrite Negative (Negative) 06/26/25 19:48 Urine Bilirubin Negative (Negative) 06/26/25 19:48 Urine Urobilinogen Negative (Negative) 06/26/25 19:48 Ur Leukocyte Esterase Negative (Negative) 06/26/25 19:48 Urine WBC (Auto) 21-50 /hpf (0-5) H 06/26/25 19:48 Urine RBC (Auto) 0-2 /hpf (0-2) 06/26/25 19:48 U Hyaline Cast (Auto) 0-2 /lpf (0-2) 06/26/25 19:48 U Epithel Cells (Auto) 0-2 /hpf (0-2) 06/26/25 19:48 Urine Bacteria (Auto) None Seen (None Seen) 06/26/25 19:48 Urine Comment 06/26/25 19:48 Nasal Screen MRSA (PCR) Negative (Negative) 06/26/25 Unknown Ethyl Alcohol mg/dL < 10.0 mg/dl (<10.0) 06/26/25 18:30 Impressions Chest X-Ray 06/26/25 17:09 Chest radiograph, one view History: Chest pain Comparison: None Findings: Single AP view of the chest performed. No focal consolidation or pleural effusion. No pneumothorax. The cardiomediastinal silhouette is within normal limits. Normal pulmonary vascularity. No evidence for lymphadenopathy. No visualized bony or soft tissue abnormality. Chronic left rib deformities. Impression: Normal chest radiograph Electronically signed by Musa Ramos 06-26-2025 6:02 PM Abdomen/Pelvis CT 06/26/25 18:52 EXAMINATION: Abdomen and pelvis CT without CLINICAL HISTORY: Abdominal pain, nausea and vomiting, pancreatitis PRIORS: None TECHNIQUE: Contiguous axial images were obtained through the abdomen and pelvis without the use of intravenous contrast. Sagittal and coronal reformations are supplied. FINDINGS: No pleural effusion. Evaluation of solid organs is limited without the use of intravenous contrast. Allowing for this, moderate peripancreatic inflammatory change is noted with multiple small peripancreatic lymph nodes without adenopathy. A pseudocyst is not identified. Pancreatic morphology and noncontrast enhanced appearance is within normal limits. No ductal dilatation. The splenic vein patency and gastroduodenal artery are not evaluated. Note large volume of ascites. Heterogeneous fatty infiltration of the liver noted. The stomach is under distended. The spleen, aorta and IVC are morphologically unremarkable. A left adrenal mass is present measuring 1.9 cm with rounded morphology and fat attenuation. Prominent, nonpathologically enlarged retroperitoneal lymph nodes present measuring up to 0.9 cm. Moderate atherosclerotic disease of the abdominal aorta. Urinary bladder distends normally. Uterus is present. No large adnexal cyst. Moderate sigmoid colon diverticulosis. No pericolonic inflammatory change. No bowel obstruction. Appendix is normal. No extraluminal gas. Urinary bladder has a normal appearance. No obstructing renal calculus. Straightening of the lumbar spine is noted. IMPRESSION: 1. Moderate peripancreatic inflammatory change, representing known acute pancreatitis, with no acute complication, allowing for noncontrast enhanced technique. 2. 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 3. Straightening of the lumbar spine compatible withmuscle spasm. 4. Moderate sigmoid colon with no pericolonic inflammatory change. Electronically signed by Rain Miller 06-26-2025 7:53 PM Code Status & VTE Plan Code Status Full code VTE Prophylaxis Plan VTE Prophylaxis will be ordered: Yes PG Care Time/CCT Total # of Minutes Spent Total Time Spent with Patient: Total time spent is greater than 50% in coordination of care (as documented) at patient's floor/unit and/or counseling patient: 53 minutes Coding Level of Care Code 79869 INT INP/OBS CARE 3/75MIN Diagnoses Sepsis A41.9 Pancreatitis K85.90 DKA (diabetic ketoacidosis) E11.10 HERNANDEZ (acute kidney injury) N17.9
[2025-06-26] MEDS: LACTATED RINGER'S 1,000 ML IV ONE (21:33)
[2025-06-26 21:59] LABS: iSTAT Art Bld Gas Base Excess -15.0 meg/L (-9-1.8); iSTAT Art Bld Gas pCO2 Correct 29 mmHg (35-46); iSTAT Art Bld Gas pH Corrected 7.245 (7.35-7.45); iSTAT Arterial Blood Gas pO2 C 98
--- NOTE | 2025-06-26 22:02 | Critical Care Consultation ---
Date of Consultation June 26, 2025 Assessment & Plan (1) Peripheral vascular disease: (2) Uncontrolled diabetes mellitus with hyperglycemia, without long-term current use of insulin: (3) DKA (diabetic ketoacidosis): (4) HERNANDEZ (acute kidney injury): (5) Dehydration: (6) Lactic acidosis: (7) Malnutrition: (8) Ambulatory dysfunction: (9) Tobacco abuse: (10) GERD (gastroesophageal reflux disease): Plan Reason Critically Ill: 1. Diabetic and starvation ketoacidosis 2. Ambulatory dysfunction 3. Protein calorie malnutrition 4. HERNANDEZ on CKD, prerenal 5. Lactic acidosis 6. Hypercalcemia, possibly 2/2 vitamin D excess, dehydration, and pancreatitis 7. Acute pancreatitis 8. Hypertension 9. Peripheral arterial disease 10. GERD Neuro - [facility] ICU: Negative RASS GOAL 0 Scheduled APAP Continue home Gabapentin Will avoid opiates as able Nicotine patch, encourage smoking cessation Cardiac - MAP goal > 65mmHg BP improves with pain control, patient denies history of hypertension at baseline Admit EKG sinus tachycardia with non-specific ST-T wave changes. Repeat tomorrow. No chest pain or SOB Lipid panel Respiratory - No acute concerns SpO2 goal > 92%. No known history of obstructive disease. Non-bronchospastic on examination IS/Flutter HOB 30, aspiration precautions GI - Diet: Once DKA resolves we may advance as tolerated. 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 With an A1c of 14.3% the patient certainly needs to start insulin therapy at home. I did briefly discuss this with patient and at bedside. HEME - No acute concerns ASA 325mg BID per Orthopaedic for DVT PPX. We will utilize SQH while inpatient ID - Received empiric Rocephin in ED. UA has some WBC but no nitrites, bacteria, or LE. She did recently finish a course of antibiotics as outpatient. Monitor off antibiotics Procalcitonin mildly elevated, may be explained by pancreatitis and i/s/o HERNANDEZ. Trend fever curve, culture and treat as indicated LINES/TUBES/DRAINS - PIV x3 Franco (Day #1) DVT PROPHYLAXIS - [facility] CODE STATUS - FULL DISPOSITION - ICU, likely stable for downgrade in AM I have personally spent 49 minutes of critical care time in the direct management of this patient. This is a life/limb threatening event. This includes time spent evaluating patient, direct bedside care, chart review, placing orders, interpretation of diagnostic studies, discussion with consultants, pat ient, and family members, as well as other required patient management activities. This time is exclusive of all separately billable procedures, and teaching time and separate from and in addition to any other critical care service time. Thank you for allowing us to participate in the care of this patient. Please refer to my attending physician's documentation for any further recommendations. History of Present Illness Reason for Consultation: DKA, pancreatitis Requesting Physician: Kareem Attending Physician: Kareem History of Present Illness Ms. Rosenda Pederson is a 54YOF with a history of tobacco use, diabetic neuropathy, BLE PAD, uncontrolled NIDDMII (14.3), pancreatitis, and fractured tibia (2024) who presented to [facility] ED on the afternoon of 06/26/2025 due to nausea, vomiting, abdominal pain and lack of PO intake x1 week. Patient hypertensive and tachycardic, otherwise hemodynamically stable on arrival to ED. She received 2L NSS, empiric ceftriaxone, APAP, H2B, Zofran, and morphine. Work-up revealed significant DKA with pH 7.08. BG > 500. Started on insulin infusion this evening. CT AP revealed uncomplicated pancreatitis. Admitted to ICU for c ontinuation of care. I did give additional 1L IVF and 10U IV insulin bolus in ED. Patient seen in ED C11. She awakens to voice. No acute distress. is at bedside and provides additional history. Feeling unwell, lack of PO intake, n/v and abdominal pain over the past 1 week. Just finished a course of antibiotics for a UTI. No hematemesis. No melena or hematochezia. Only able to keep water down at home. Is not currently on anything for her known diabetes diagnosed "100 years ago" per . Had been trialed on metformin and was unable to tolerate side effects. Trialed on Jardiance this year but had nausea and vomiting and had to stop. Never on insulin therapy. Currently being managed by her PCP. Meds reviewed - on ASA 325BID for DVT PPX per orthopaedics. Saw Vascular Dr. Dickey this year for her newly diagnosed PAD who did not recommend intervention at this time given lack of symptomatology and current limited weight bearing status. Was taking high dose Vitamin D for presumed osteoporosis. Patient is not able to tell me if she's still taking this. Currently has some residual nausea and abdominal pain, no other complaints. Allergies Allergy/AdvReac Type Severity Reaction Status Date / Time No Known Allergies Allergy Verified 03/12/25 11:45 Home Medications Medication Instructions Recorded Confirmed Type aspirin 325 mg tablet 325 mg PO BID 05/30/25 05/30/25 History cholecalciferol (vitamin D3) 25 25 mcg PO DAILY 05/30/25 05/30/25 History mcg (1,000 unit) capsule cyanocobalamin (vitamin B-12) 1,000 mcg PO DAILY 05/30/25 05/30/25 History 1,000 mcg capsule escitalopram oxalate 10 mg tablet 10 mg PO DAILY 05/30/25 05/30/25 History (Lexapro) esomeprazole magnesium 20 mg 20 mg PO DAILY 05/30/25 05/30/25 History capsule,delayed release (Nexium) folic acid 0.8 mg capsule 0.4 mg PO DAILY 05/30/25 05/30/25 History gabapentin 100 mg capsule 100 mg PO HS 05/30/25 05/30/25 History ibuprofen 600 mg tablet 600 mg PO Q8H PRN 05/30/25 05/30/25 History magnesium oxide 400 mg (241.3 mg 400 mg PO DAILY 05/30/25 05/30/25 History magnesium) tablet (MagOx) Patient History Medical History Neuropathy GERD (gastroesophageal reflux disease) Anxiety and depression Surgical History No pertinent past surgical history Social History Smoking Status: Current every day smoker Preferred Language: [place] Feels Safe at Home: Yes Review of Systems Review of Systems: All systems reviewed & are unremarkable except as noted in Subjective Physical Exam Constitutional: + thin, + lethargic and + malnourished; no acute distress Eyes: PERRL, conjunctivae normal, anicteric sclerae ENMT: external ear and nose normal, oropharynx normal Dry MM Neck: trachea midline, no thyromegaly Respiratory: normal respiratory effort, lungs clear to auscultation Cardiovascular: RRR, no murmur, no edema No DP pulses R foot. Foot is warm Gastrointestinal (Abdomen): Inspection/Auscultation: abdomen normal to inspection and normal bowel sounds; abdomen not distended Percussion/Palpation: + abdomen tender and abdomen soft; no guarding and abdomen not rigid Musculoskeletal: no cyanosis or clubbing, extremities motor strength 5/5 Significant muscle wasting Skin: no rashes, warm and dry Neurologic: normal touch/pain/proprioception and moves all extremities; no focal motor deficits Genitourinary: Franco in place draining light yellow urine Results & Data Results & Data Vital Signs (Past 12 Hours) Vital Signs Temp Pulse Pulse Resp BP BP Pulse Ox 06/26/25 21:37 94 H 20 194/94 H 96 06/26/25 21:30 91 H 20 192/104 H 98 06/26/25 21:00 194/95 H 06/26/25 20:00 106 H 16 97 06/26/25 18:09 113 H 06/26/25 18:02 114 H 12 188/96 H 99 06/26/25 17:03 36.3 C L 126 H 18 143/77 H 94 O2 Del Method 06/26/25 21:37 Room Air 06/26/25 21:30 Room Air 06/26/25 21:00 06/26/25 20:00 Room Air 06/26/25 18:09 06/26/25 18:02 06/26/25 17:03 Room Air Laboratory Results Reviewed Diagnostic Findings Reviewed Medications Administered See MAR Coding Level of Care Code 07093 IN/OBS CONSULT LVL 3,45M Diagnoses Peripheral vascular disease I73.9 Uncontrolled diabetes mellitus with hyperglycemia, without long-term current use of insulin E11.65 DKA (diabetic ketoacidosis) E11.10 HERNANDEZ (acute kidney injury) N17.9 Dehydration E86.0 Lactic acidosis E87.20 Malnutrition E46 Ambulatory dysfunction R26.2 Tobacco abuse Z72.0 GERD (gastroesophageal reflux disease) K21.9 Time Spent (min) 49
[2025-06-26] MEDS ORDERED: ALBUT/IPRATROP 3MG/0.5MG NEB 3 ML VIAL INH PRN (22:03)
[2025-06-26] MEDS ORDERED: ACETAMINOPHEN 1000 MG/100 ML IV IV PRN (22:03)
[2025-06-26] MEDS ORDERED: PHARMACY GLYCEMIC MGMT CONSULT PRN (22:26)
[2025-06-26 22:35] LABS: Anion Gap 14.0 (3-11); Blood Urea Nitrogen 37.0 mg/dl (6-23); Calcium 11.2 mg/dl (8.6-10.3); Carbon Dioxide 13.0 mmol/L (21-32); Chloride 100.0 mmol/L (98-107); Creatine Kinase 22.0 U/L (26-192); Creatinine Clr Calc Pharmacy 42.1 ml/min; Glucose 376.0 mg/dl (70-99(Fasting)); Potassium 3.6 mmol/L (3.5-5.1); Sodium 127.0 mmol/L (136-145); Triglycerides 421.0 mg/dl (0-150)
[2025-06-26] MEDS: PANTOprazole 40 MG/10 ML SYR IV SCH (23:01)
[2025-06-26] MEDS ORDERED: Nursing to Pharmacy Communication SCH (23:15)
[2025-06-26] MEDS ORDERED: POTASSIUM CHLORIDE 40 MEQ in D5W AND 1/2NSS 1,000 ML IV SCH (23:30)
[2025-06-26] MEDS: POTASSIUM CHLORIDE / WTR 10 MEQ/100 ML PLCT IV SCH (23:37)
[2025-06-26] MEDS: MoRPHine SULFATE 2 MG/ML CARP IV STA (23:37)
[2025-06-26] MEDS: POTASSIUM CHLORIDE 40 MEQ in D5W AND 1/2NSS 1,000 ML IV SCH (23:43)
[2025-06-27] MEDS: LABETALOL HCL IV 5 MG/ML 20ML IV STA ×2 (00:54→03:32)
[2025-06-27 01:41] LABS: Anion Gap 8.0 (3-11); Blood Urea Nitrogen 32.0 mg/dl (6-23); Calcium 10.5 mg/dl (8.6-10.3); Carbon Dioxide 17.0 mmol/L (21-32); Chloride 103.0 mmol/L (98-107); Creatinine Clr Calc Pharmacy 40.1 ml/min; Glucose 241.0 mg/dl (70-99(Fasting)); Potassium 3.7 mmol/L (3.5-5.1); Sodium 128.0 mmol/L (136-145)
[2025-06-27] MEDS: POTASSIUM CHLORIDE / WTR 10 MEQ/100 ML PLCT IV SCH (03:44)
--- NOTE | 2025-06-27 04:14 | Billing Data ---
Date of Service June 27, 2025 Coding Level of Care Code 13568 CRITICAL CARE
[2025-06-27] MEDS: ACETAMINOPHEN 1,000 MG/100 ML VIAL IV SCH (04:49)
[2025-06-27 04:52] LABS: Hematocrit (blood only) 27.1 % (37.0-47.0); Hemoglobin 9.2 g/dl (12.0-16.0); Mean Corpuscular Hemoglobin 27.5 pg (25.0-34.0); Mean Corpuscular Volume 80.9 fL (80.0-100.0); Platelet Count 408 K/uL (130-400); RDW Standard Deviation 43.0 fL (36.4-46.3); Red Blood Count 3.35 M/uL (4.20-5.40); White Blood Count 14.81 K/ul (4.8-10.8)
[2025-06-27 04:53] LABS: Immature Granulocytes # (auto) 0.15 K/uL (0.01-0.20); Immature Granulocytes % (auto) 1.0 %
[2025-06-27 05:09] LABS: Alanine Aminotransferase < 3 U/L (7-52); Albumin Globulin Ratio 1.0 (0.9-2); Alkaline Phosphatase 95 U/L (34-104); Anion Gap 6 (3-11); Bilirubin,Total 0.2 mg/dl (0.2-1.0); Blood Urea Nitrogen 27 mg/dl (6-23); Calcium 10.4 mg/dl (8.6-10.3); Carbon Dioxide 16 mmol/L (21-32); Chloride 104 mmol/L (98-107); Cholesterol 254 mg/dl (0-200); Creatinine Clr Calc Pharmacy 44.5 ml/min; Globulin 3.1 gm/dl (2.5-4.0); Glucose 285 mg/dl (70-99(Fasting)); HDL Cholesterol 15 mg/dl; Magnesium 1.4 mg/dl (1.7-2.4); Potassium 5.1 mmol/L (3.5-5.1); Sodium 126 mmol/L (136-145); Total Protein 6.1 gm/dl (6.0-8.3); Triglycerides 352 mg/dl (0-150)
[2025-06-27] MEDS ORDERED: SODIUM PHOSPHATE 3 MMOL/1 ML INFUSION IV STA (05:12)
[2025-06-27 05:16] LABS: INR 1.0 (0.9-1.1); Partial Thromboplastin Time 28 Seconds (21-31); Prothrombin Time 10.9 Seconds (9.0-12.0)
[2025-06-27] MEDS ORDERED: Nursing to Pharmacy Communication SCH (05:30)
[2025-06-27] MEDS: MAGNESIUM SULFATE / D5W 1 GM/100 ML BAG IV SCH (05:39)
[2025-06-27] MEDS: D5W AND 1/2NSS 1,000 ML IV SCH (05:41)
[2025-06-27] MEDS: SODIUM PHOSPHATE 15 MMOL in SODIUM CHLORIDE 0.9% 250 ML IV ONE (05:54)
--- NOTE | 2025-06-27 07:06 | Ultrasound Report ---
US liver CLINICAL HISTORY: Pancreatitis, eval CBD COMPARISON STUDY: CT of the abdomen and pelvis June 26, 2025. FINDINGS: No hepatic lesions are identified. There is no intra or extrahepatic biliary ductal dilatat ion. Common bile duct measures 6 mm in caliber. No common bile duct calculi are identified. Pancreas is partially obscured. Pancreatic parenchyma appears slightly heterogeneous. There are no peripancrea tic fluid collections. No gallstones are identified. There is sludge within the gallbladder. There is moderate gallbladder wall thickening and trace pericholecystic fluid. Sonographic Sosa sign could not be assessed for given pain medication administration. There is no right hydronephrosis. There is a 3.1 cm hypoechoic right mid pole renal lesion which appears to contain color flow. There is also a 1.7 cm right lower pole renal cyst. IMPRESSION: 1. No gallstones. Sludge within the gallbladder with mild gallbladder wall thickening and trace peric holecystic fluid. No convincing evidence for acute cholecystitis although sonographic Sosa sign cou ld not be assessed in this patient. 2. 3.1 cm hypoechoic right mid pole renal lesion which appears to contain color flow. This is suspici ous for a solid renal lesion. Nonemergent renal protocol MRI is recommended. Findings will be called/ faxed to the ordering provider at time of dictation. 3. Partially obscured pancreas. Heterogeneity pancreatic parenchyma which could be correlated with se rum lipase level. No peripancreatic fluid collections. ACT 112: Positive. There are findings on this exam that require communication between the performing entity and the patient following Patient Test Result Information Act ([place] Act 112) guidelines. Electronically signed by: Stan Juarez M.D. 06/27/2025 7:04 AM
--- NOTE | 2025-06-27 07:30 | Critical Care Progress Note ---
Date of Service June 27, 2025 Assessment & Plan (1) Peripheral vascular disease: (2) Uncontrolled diabetes mellitus with hyperglycemia, without long-term current use of insulin: (3) DKA (diabetic ketoacidosis): (4) HERNANDEZ (acute kidney injury): (5) Dehydration: (6) Lactic acidosis: (7) Malnutrition: (8) Ambulatory dysfunction: (9) Tobacco abuse: (10) GERD (gastroesophageal reflux disease): Plan Reason Critically Ill: 1. Diabetic and starvation ketoacidosis 2. Ambulatory dysfunction 3. Protein calorie malnutrition 4. HERNANDEZ on CKD, prerenal 5. Lactic acidosis 6. Hypercalcemia, possibly 2/2 vitamin D excess, dehydration, and pancreatitis 7. Acute pancreatitis 8. Hypertension 9. Peripheral arterial disease 10. GERD Neuro - [facility] ICU: Negative -- No acute issues Cardiac - -- Hypertension On amlodipine 5 mg at home Will need optimization of blood pressure medications -- Dyslipidemia Elevated total cholesterol as well as triglycerides Will benefit from statin Respiratory - -- COPD Current smoker with greater than [id number] smoking history Not bronchospastic Recommend outpatient PFT and pulmonary follow-up GI - -- Acute pancreatitis Lipase 2569 with positive CAT scan as well as physical exam findings Continue with IV fluids and pain management Ultrasound of the liver shows mild pericholecystic fluid, sludge within the gallbladder, no sonographic Sosa sign Patient does have elevated triglycerides but not high enough to be the reason for pancreatitis, she might even benefit from fenofibrate's -- GERD On esomeprazole at home RENAL/LYTES - -- HERNANDEZ --> improving Likely secondary dehydration Monitor BUN/creatinine Avoid nephrotoxic medications Strict ins and outs -- Hyponatremia Hypovolemic Serum osmolality 308 Elevated triglycerides ENDO - --DKA Continue with insulin drip until anion gap closes Decreasing blood glucose no more than 100 in an hour Replace potassium IV when potassium level between 3.3-5.3 BMP every 4 hours Continue with IV fluids 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 14.3 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 --Hypercalcemia PTH on the lower side Does take 50,000 IU vitamin D on a weekly basis since more than 3 months Follow-up vitamin D and 1, 25 dihydroxy vitamin D HEME - -- Normocytic anemia Monitor H&H ID - -- Leukocytosis Urine clean, chest x-ray clean Does have acute pancreatitis which can give leukocytosis Procalcitonin 0.87 No indication of antibiotics and uncomplicated pancreatitis --Prophylaxis VTE: Heparin GI: Pantoprazole Lines: Peripheral Diet: Diabetic cardiac Plan: In/out: +5.3 L, urine output 780 mL Will bridge insulin to subcu given the anion gap is closed Will decrease the rate of IV fluids given that the patient is already 5.3 L Atorvastatin 40 mg has been started for the patient Patient does have elevated triglycerides but not high enough to be the reason for pancreatitis, she might even benefit from fenofibrate's Diabetic education for the patient Magnesium as well as phosphorus being replaced Follow-up urine osmolality and urine lites I have personally spent 39 minutes of critical care time in the direct management of this patient. This is a life/limb threatening event. This includes time spent evaluating patient, direct bedside care, chart review, placing orders, interpretation of diagnostic studies, discussion with consultants, patient, and family members, as well as other required patient management activities. This time is exclusive of all separately billable procedures, and teaching time and separate from and in addition to any other critical care service time. Thank you for allowing us to participate in the care of this patient. Please refer to my attending physician's documentation for any further recommendations. Admission and Anticipated Discharge Date Admission Date: June 26, 2025 Subjective Patient seen and examined at bedside. Complaining of abdominal discomfort She does have nausea but no vomiting. Mild headache with some blurry vision. No shortness of breath, no chest pain Was saturating well on room air. Systolic blood pressure was 160 with heart rate in the 80s Review of Systems 2 Review of Systems: All systems reviewed & are unremarkable except as noted in Subjective Physical Exam 2 Physical Exam: Constitutional: No acute distress HEENT: EOMI, PERRLA Respiratory system: Decreased air entry bilaterally, no wheeze, no rhonchi, minimal crackles bilateral lower lobe CVS: S1-S2 positive, no murmurs or gallops Abdomen: Soft, diffuse abdominal tenderness, positive Sosa's, no rebound, positive bowel sounds x 4 Extremities: +2 pulses bilaterally radialis/ dorsalis pedis, no cyanosis, no edema Neuro: Somnolent but easily arousable, answering all the questions appropriately, oriented x3 Psych: Normal mood and affect G/U: Positive Franco Skin: no rashes, warm and dry Lymphatic: no cervical or axillary lymphadenopathy Results & Data Results & Data Vital Signs (Past 12 Hours) Vital Signs Temp Pulse Pulse Resp BP BP Pulse Ox 06/27/25 06:00 85 20 163/89 H 96 06/27/25 05:00 77 20 157/90 H 96 06/27/25 04:00 36.9 C 77 18 172/88 H 97 06/27/25 03:52 78 161/86 H 06/27/25 03:32 82 185/91 H 06/27/25 03:00 83 18 185/91 H 97 06/27/25 02:00 80 17 176/90 H 97 06/27/25 01:28 77 141/70 H 06/27/25 01:00 75 12 141/70 H 97 06/27/25 00:54 89 183/84 H 06/27/25 00:00 36.6 C 89 17 183/84 H 96 06/26/25 23:30 85 22 95 06/26/25 23:00 90 20 179/101 H 95 06/26/25 22:30 90 20 193/88 H 95 06/26/25 21:50 36.5 C 90 19 183/89 H 95 06/26/25 21:37 94 H 20 194/94 H 96 06/26/25 21:30 91 H 20 192/104 H 98 06/26/25 21:00 194/95 H 06/26/25 20:00 106 H 16 97 O2 Del Method 06/27/25 06:00 Room Air 06/27/25 05:00 Room Air 06/27/25 04:00 Room Air 06/27/25 03:52 06/27/25 03:32 06/27/25 03:00 Room Air 06/27/25 02:00 Room Air 06/27/25 01:28 06/27/25 01:00 Room Air 06/27/25 00:54 06/27/25 00:00 Room Air 06/26/25 23:30 Room Air 06/26/25 23:00 Room Air 06/26/25 22:30 Room Air 06/26/25 21:50 Room Air 06/26/25 21:37 Room Air 06/26/25 21:30 Room Air 06/26/25 21:00 06/26/25 20:00 Room Air Laboratory Results 06/27/25 04:28 06/27/25 04:28 Coding Level of Care Code 59573 CRITICAL CARE 1ST 30-74M Diagnoses Peripheral vascular disease I73.9 Uncontrolled diabetes mellitus with hyperglycemia, without long-term current use of insulin E11.65 DKA (diabetic ketoacidosis) E11.10 HERNANDEZ (acute kidney injury) N17.9 Dehydration E86.0 Lactic acidosis E87.20 Malnutrition E46 Ambulatory dysfunction R26.2 Tobacco abuse Z72.0 GERD (gastroesophageal reflux disease) K21.9
[2025-06-27] MEDS ORDERED: PHARMACY GLYCEMIC MGMT CONSULT PRN (07:34)
[2025-06-27] MEDS: ATORVASTATIN 40 MG TAB PO SCH (08:36)
[2025-06-27] MEDS: NICOTINE 7 MG/24 HR TDSY TD SCH (08:37)
[2025-06-27] MEDS: ASPIRIN 81 MG ECTAB PO SCH (08:37)
[2025-06-27] MEDS: REMOVE NICODERM PATCH SCH (08:38)
[2025-06-27] MEDS: INSULIN ASPART PER UNIT CHARGE SC SCH ×2 (08:38→14:30)
--- NOTE | 2025-06-27 09:33 | Hospitalist Progress Note ---
Date of Service June 27, 2025 Assessment & Plan (1) Sepsis: (2) Pancreatitis: (3) DKA (diabetic ketoacidosis): (4) HERNANDEZ (acute kidney injury): Plan The patient is a 54-year-old female with a past medical history including diabetes mellitus, PAD, uncontrolled diabetes mellitus, B12 deficiency, anxiety, GERD, history of pancreatitis, and tobacco abuse. The patient presents to the emergency department with complaint of fevers, nausea, vomiting, generalized abdominal pain, and left flank pain worsening over the past week. She reports that the symptoms are similar to previous episodes of pancreatitis and urinary tract infection which she has had in the past, several years ago. Workup in the emergency department included an abnormal lipase of 2569, hemoglobin A1c 14.3, calcium 13.1, sodium 122, glucose 582, creatinine 1.57. Imaging included a CT scan of abdomen pelvis suggestive of acute pancreatitis. By the emergency department she was started on an insulin drip, was given normal saline 2 L IV bolus, Tylenol 1 g IV, famotidine 20 mg IV, Zofran 4 mg IV, morphine 4 mg IV x 2, and ceftriaxone 2 g IV. She was then referred for evaluation for admission. SIRS in setting of acute pancreatitis BC NTD. Infectious w/u NTD. doubt sepsis DKA DKA protocol orders Received 2 L normal saline in the ED Continue IV fluid rehydration per the ICU Continue insulin drip and adjustments per ICU. They are transitioning to subq this AM. N.p.o. at this time Diabetes education and dietitian Hemoglobin A1c 14.3 indicating significant lack of control. endocrinology consultation Pancreatitis Lipase 2569 CT scan abdomen and pelvis suggestive of acute pancreatitis IV fluid rehydration as above, pain control with acetaminophen IV Zofran 4 mg IV every 6 hours as needed RUQ US sludge in gallbladder mild thickening and trace pericholecystic fluid limited study for cholecystitis. HIDA ordered Lipid panel TAG ~350. Statin initiated. Can consider fenofibrate in near future. Acute kidney injury Creatinine 1.57, with baseline 0.79 IV fluids as above, and follow labs serially Avoid nephrotoxic meds Hypovolemic hyponatremia Urine studies cortisol TFTs IVFs Avoid overcorrection Incidental adrenal adenoma and questionable renal mass MRI once stable rule out malignancy Hypercalcemia, possibly 2/2 vitamin D excess, dehydration, and pancreatitis PTH on lower side On 50,000 IU vitamin D outpatient Follow vitamin D levels Anemia dilutional? anemia of acute disease/inflammation? Hb goal > 7. TFTs b12 folate iron studies stool occult Tobacco abuse Cessation counseling Nicotine patch COPD outpatient PFT and pulmonary follow-up Ambulatory dysfunction Fall precautions and PTOT Protein calorie malnutrition Toggler consultation GERD- Change Nexium to pantoprazole IV HTN Norvasc GI prophylaxis DVT prophylaxis Full code Disposition likely discharge home in 2 to 3 days Admission and Anticipated Discharge Date Admission Date: June 26, 2025 Subjective Still With nausea and diffuse abdominal discomfort. no cp dyspnea f/c lightheadedness or other symptoms. 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 remains on insulin GTT and IVF's. lytes Mg and phosph being repleted. d/w MICU RN labs for today pending Review of Systems Review of Systems: Negative except as in HPI Physical Exam Physical Exam: The patient is awake, lethargic, normocephalic and atraumatic, lying in bed and in no acute distress. HEENT--PERRL, EOMI, mucous membranes and oropharynx dry. Neck--supple. No JVD. No bruits. Thyroid normal, trachea midline, no adenopathy. Heart--normal S1 and S2. No murmurs, rubs or gallops. Lungs--clear bilaterally, no respiratory distress, no accessory muscle use. Abdomen--normal bowel sounds and soft. ND. diffusely tender no rebound/guarding Extremities--no cyanosis or clubbing. No edema. Dermatologic--normal skin turgor, normal color, no abnormal lymph nodes, no rash. Neurologic--cranial nerves II through XII grossly intact. Rheumatologic--normal range of motion. Results & Data Results & Data Vital Signs (Past 12 Hours) Vital Signs Temp Pulse Pulse Resp BP BP Pulse Ox 06/27/25 06:00 85 20 163/89 H 96 06/27/25 05:00 77 20 157/90 H 96 06/27/25 04:00 36.9 C 77 18 172/88 H 97 06/27/25 03:52 78 161/86 H 06/27/25 03:32 82 185/91 H 06/27/25 03:00 83 18 185/91 H 97 06/27/25 02:00 80 17 176/90 H 97 06/27/25 01:28 77 141/70 H 06/27/25 01:00 75 12 141/70 H 97 06/27/25 00:54 89 183/84 H 06/27/25 00:00 36.6 C 89 17 183/84 H 96 06/26/25 23:30 85 22 95 06/26/25 23:00 90 20 179/101 H 95 06/26/25 22:30 90 20 193/88 H 95 06/26/25 21:50 36.5 C 90 19 183/89 H 95 06/26/25 21:37 94 H 20 194/94 H 96 06/26/25 21:30 91 H 20 192/104 H 98 O2 Del Method 06/27/25 06:00 Room Air 06/27/25 05:00 Room Air 06/27/25 04:00 Room Air 06/27/25 03:52 06/27/25 03:32 06/27/25 03:00 Room Air 06/27/25 02:00 Room Air 06/27/25 01:28 06/27/25 01:00 Room Air 06/27/25 00:54 06/27/25 00:00 Room Air 06/26/25 23:30 Room Air 06/26/25 23:00 Room Air 06/26/25 22:30 Room Air 06/26/25 21:50 Room Air 06/26/25 21:37 Room Air 06/26/25 21:30 Room Air PG Care Time/CCT Total # of Minutes Spent Total Time Spent with Patient: Total time spent is greater than 50% in coordination of care (as documented) at patient's floor/unit and/or counseling patient: Coding Level of Care Code 74477 SUB INP/OBS CARE 2/35MIN Diagnoses Sepsis A41.9 Pancreatitis K85.90 DKA (diabetic ketoacidosis) E11.10 HERNANDEZ (acute kidney injury) N17.9
[2025-06-27 09:49] LABS: Anion Gap 7.0 (3-11); Blood Urea Nitrogen 23.0 mg/dl (6-23); Calcium 10.4 mg/dl (8.6-10.3); Carbon Dioxide 16.0 mmol/L (21-32); Chloride 105.0 mmol/L (98-107); Creatinine Clr Calc Pharmacy 48.5 ml/min; Glucose 177.0 mg/dl (70-99(Fasting)); Potassium 4.2 mmol/L (3.5-5.1); Sodium 128.0 mmol/L (136-145)
[2025-06-27] MEDS: HEPARIN SOD 5,000 UNIT/0.5 ML VIAL SQ SCH (10:12)
[2025-06-27 10:24] LABS: Iron 39.0 mcg/dl (35-150); Thyroid Stimulating Hormone 1.546 uIu/ml (0.300-4.500); Total Iron Binding Cap Calc 207.0 mcg/dl (250-450); Transferrin 148.0 mg/dl (200-360); Transferrin (FE) Percent Satur 19.0 % (15-50)
[2025-06-27 11:10] LABS: Folate (Folic Acid),Ser orPlas 11.16 ng/ml (>5.38)
[2025-06-27 11:11] LABS: Vitamin B12 899.0 pg/ml (180-914)
[2025-06-27] MEDS: LANTUS PER UNIT CHARGE SC ONE (11:40)
[2025-06-27 13:17] LABS: Anion Gap 6.0 (3-11); Blood Urea Nitrogen 20.0 mg/dl (6-23); Calcium 10.3 mg/dl (8.6-10.3); Carbon Dioxide 16.0 mmol/L (21-32); Chloride 105.0 mmol/L (98-107); Creatinine Clr Calc Pharmacy 50.6 ml/min; Glucose 144.0 mg/dl (70-99(Fasting)); Potassium 3.5 mmol/L (3.5-5.1); Sodium 127.0 mmol/L (136-145)
[2025-06-27] MEDS: LACTATED RINGER'S 1,000 ML IV SCH (13:22)
--- NOTE | 2025-06-27 14:11 | Pharmacy Report ---
Pharmacy Glycemic Short Note 2 - Date of Service June 27, 2025 - Glycemic Short BSG Results (Last 24 hours): 06/26/25 06/26/25 06/26/25 17:47 19:47 20:59 Glucose 582 H* POC Glucose 534 H* 423 H* 06/26/25 06/26/25 06/26/25 21:34 22:14 23:07 Glucose 376 H* POC Glucose 327 H* 257 H 06/27/25 06/27/25 06/27/25 00:09 00:56 01:01 Glucose 241 H POC Glucose 230 H 242 H 06/27/25 06/27/25 06/27/25 02:04 03:07 04:08 Glucose POC Glucose 270 H 259 H 306 H* 06/27/25 06/27/25 06/27/25 04:10 04:28 05:10 Glucose 285 H POC Glucose 275 H 263 H 06/27/25 06/27/25 06/27/25 06:02 07:19 08:32 Glucose POC Glucose 270 H 243 H 204 H 06/27/25 06/27/25 06/27/25 08:57 09:27 10:44 Glucose 177 H POC Glucose 176 H 173 H 06/27/25 06/27/25 11:33 12:45 Glucose 144 H POC Glucose 165 H OUTPATIENT ANTIDIABETIC REGIMEN: * Januvia 25 mg daily on fill history * A1c 14.3% ASSESSMENT: * Admitted with DKA/pancreatitis. Initial BSG in the 500s, anion gap now resolved, Bicarb 16. * Began transition off of insulin infusion with 30 units of lantus. Insulin infusion steady @ 6 units/hr, although BSGs now downtrending with D51/2NS. * Overlapped with lantus ~2 hours, insulin infusion stopped as patient going to nuclear medicine. Will recheck BSG to check for rebound/dextrose containing fluids also stopped. * Will begin novolog weight stress 3 parameters PLAN FOR INPATIENT GLYCEMIC CONTROL: * Hold outpatient oral diabetes medications * Basal insulin * Lantus 30 units x 1 to be reassessed in AM * Bolus insulin * NovoLog per scale ACHS or Q6hrs while NPO * Goal Range: Low 120 mg/dL - High 160 mg/dL * Correction Factor: 30 mg/dL/unit * Nutritional / Prandial insulin per carb ratio of 1 unit per 10 grams CHO consumed
--- NOTE | 2025-06-27 15:11 | Nuclear Medicine Report ---
NUCLEAR MEDICINE HEPATOBILIARY SCAN CLINICAL HISTORY: Abdominal pain. Pancreatitis. Sludge within the gallbladder. Evaluate for cholecys titis. COMPARISON: CT of the abdomen and pelvis June 26, 2025 and right upper quadrant ultrasound June 27, 2025. TECHNIQUE: 5.1 mCi of technetium 99m Choletec IV was injected at 2:10 PM on June 27, 2025. Immedi ately following injection, imaging of the abdomen was carried out for 60 minutes in the anterior proj ection. FINDINGS: Hepatic uptake of radiotracer is prompt and homogeneous. Radiotracer activity is identifie d within the common bile duct at 15 minutes, gallbladder at 15 minutes and small bowel at 20 minutes. There is normal distribution of radiotracer. IMPRESSION: No evidence for acute cholecystitis. ACT 112: Negative or not required by law. Electronically signed by: Stan Juarez M.D. 06/27/2025 3:10 PM
[2025-06-27] MEDS: MoRPHine SULFATE 2 MG/ML CARP IV PRN (15:12)
[2025-06-27] MEDS: ONDANSETRON INJ 2 MG/ML 2 ML VIAL IV PRN (15:13)
[2025-06-27 17:44] LABS: Anion Gap 10.0 (3-11); Calcium 10.7 mg/dl (8.6-10.3); Carbon Dioxide 12.0 mmol/L (21-32); Chloride 104.0 mmol/L (98-107); Potassium 3.9 mmol/L (3.5-5.1); Sodium 126.0 mmol/L (136-145)
[2025-06-27 17:50] LABS: Blood Urea Nitrogen 18.0 mg/dl (6-23); Creatinine Clr Calc Pharmacy 53.3 ml/min; Glucose 155.0 mg/dl (70-99(Fasting))
--- NOTE | 2025-06-27 18:21 | XCELERA ---
[id number]
[2025-06-28 04:49] LABS: Hematocrit (blood only) 28.3 % (37.0-47.0); Hemoglobin 9.7 g/dl (12.0-16.0); Immature Granulocytes # (auto) 0.11 K/uL (0.01-0.20); Immature Granulocytes % (auto) 0.8 %; Mean Corpuscular Hemoglobin 27.5 pg (25.0-34.0); Mean Corpuscular Volume 80.2 fL (80.0-100.0); Platelet Count 453 K/uL (130-400); RDW Standard Deviation 42.5 fL (36.4-46.3); Red Blood Count 3.53 M/uL (4.20-5.40); White Blood Count 13.82 K/ul (4.8-10.8)
[2025-06-28 05:05] LABS: Alanine Aminotransferase 3.0 U/L (7-52); Albumin Globulin Ratio 0.9 (0.9-2); Alkaline Phosphatase 102.0 U/L (34-104); Anion Gap 7.0 (3-11); Bilirubin,Total 0.3 mg/dl (0.2-1.0); Blood Urea Nitrogen 14.0 mg/dl (6-23); Calcium 10.2 mg/dl (8.6-10.3); Carbon Dioxide 17.0 mmol/L (21-32); Chloride 103.0 mmol/L (98-107); Creatinine Clr Calc Pharmacy 54.5 ml/min; Globulin 3.2 gm/dl (2.5-4.0); Glucose 226.0 mg/dl (70-99(Fasting)); Magnesium 1.7 mg/dl (1.7-2.4); Potassium 3.7 mmol/L (3.5-5.1); Sodium 127.0 mmol/L (136-145); Total Protein 6.0 gm/dl (6.0-8.3)
[2025-06-28 05:14] LABS: INR 1.0 (0.9-1.1); Partial Thromboplastin Time 29 Seconds (21-31); Prothrombin Time 11.0 Seconds (9.0-12.0)
[2025-06-28] MEDS: MAGNESIUM SULFATE / D5W 1 GM/100 ML BAG IV SCH (06:31)
[2025-06-28] MEDS: POTASSIUM CHLORIDE 20 MEQ/15 ML UDC PO STA (06:31)
--- NOTE | 2025-06-28 07:42 | Hospitalist Progress Note ---
Date of Service June 28, 2025 Assessment & Plan (1) Sepsis: (2) Pancreatitis: (3) DKA (diabetic ketoacidosis): (4) HERNANDEZ (acute kidney injury): Plan The patient is a 54-year-old female with a past medical history including diabetes mellitus, PAD, uncontrolled diabetes mellitus, B12 deficiency, anxiety, GERD, history of pancreatitis, and tobacco abuse. The patient presents to the emergency department with complaint of fevers, nausea, vomiting, generalized abdominal pain, and left flank pain worsening over the past week. She reports that the symptoms are similar to previous episodes of pancreatitis and urinary tract infection which she has had in the past, several years ago. Workup in the emergency department included an abnormal lipase of 2569, hemoglobin A1c 14.3, calcium 13.1, sodium 122, glucose 582, creatinine 1.57. Imaging included a CT scan of abdomen pelvis suggestive of acute pancreatitis. By the emergency department she was started on an insulin drip, was given normal saline 2 L IV bolus, Tylenol 1 g IV, famotidine 20 mg IV, Zofran 4 mg IV, morphine 4 mg IV x 2, and ceftriaxone 2 g IV. She was then referred for evaluation for admission. SIRS in setting of acute pancreatitis BC NTD. Infectious w/u NTD. doubt sepsis DKA, resolved Transition to SQ protocol Uncontrolled type II DM A1c greater than 14%. Not tolerate metformin as an outpatient. Only took 1 dose of Januvia prior to coming into the hospital. Anticipate will need basal bolus on discharge Pancreatitis Lipase 2569 CTA/P suggestive of acute pancreatitis. . Liver ultrasound with no gallstones, gallbladder sludge, no convincing evidence for acute cholecystitis No bilirubin/transaminitis suggestive of obstructive pathology although passed stone is possible HIDA scan normal Lipids elevated, although lower than expected to be direct cause of acute pancreatitis calcium was elevated with severe volume contraction. May have contributed, this is improving with fluids. Calcium was elevated on admission, this is normalized with fluids. Vitamin D level is pending. PTH was low No history of alcohol use Continue fluids, multimodal pain control Hyponatremia Urine random sodium 50, urine osmolality 335, , Serum osmolality 308, 275 post fluids Net 5.5 L positive since admission, was profoundly volume contracted with DKA on admission. Volume status improved, 2865 cc 24-hour UOP last 24 hours Continue p.o. as tolerated, liberalize salt intake, trend daily - Random cortisol 21.77, inconsistent with adrenal insufficiency HERNANDEZ Baseline approximately 0.79, creatinine initially 1.57 HERNANDEZ resolved Trend daily Adrenal incidentaloma,? Renal mass Nonemergent MRI when able Hypercalcemia, possibly 2/2 vitamin D excess, dehydration, and pancreatitis Calcium on admission 13.1 in the setting of some volume contraction and HHS PTH suppressed at 5.7 Patient takes vitamin D weekly supplementation as outpatient 125 vitamin D levels are pending. 25hydroxyvitamin D is low. Serum protein levels are normal. Vitamin D is low. PTH appropriately suppressed. Calcium levels have completely normalized with fluids, suspect elevation with severe volume contraction and HHS. When range progressed outpatient would get follow-up BMP within 1 month, and if again elevated then follow-up with PTH RP/SPEP/UPEP/free chain assay. Chronic stable issues Tobacco abuse: Nicotine patch, continue outpatient counseling COPD: Outpatient pulmonary follow-up. No acute exacerbation Protein calorie malnutrition: Dietitian consulted. Liberalize salt intake as noted GERD: Continue PPI Hypertension: Continue Norvasc Ambulatory dysfunction: PT/OT Tobacco abuse -Cessation counseling -Nicotine patch COPD - outpatient PFT and pulmonary follow-up Ambulatory dysfunction -Fall precautions and PTOT Protein calorie malnutrition - Logging Contractor consultation GERD- Change Nexium to pantoprazole IV HTN Norvasc DVT prophylaxis: Subcu transition to Lovenox Full code Admission and Anticipated Discharge Date Admission Date: June 26, 2025 Subjective Seen at the bedside. Continues to have left upper abdominal pain similar to her prior episode of pancreatitis which took 4 days to resolve. Reports her main problem is pain, denies other concerns this morning. 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 Has been intolerant of metformin in the past Is open to insulin therapy when ready for discharge Denies fever chills or sweats Poor appetite mostly due to pain today Denies chest pain/chest pressure Feels her pain is more in a belt wrapping around her flank and mostly on the left Was transitioned to SQ, slight increased BSG this morning due to getting potassium with orange juice Physical Exam Physical Exam: General: A&Ox3. NAD. Cooperative. HEENT: Atraumatic, normocephalic. Patient hearing grossly intact Pulm: CTAB A&P. -wheezes, -rales, -rhonchi. Symmetrical chest rise. No increase in work of breathing. No respiratory distress. Cardiac: Regular, mild tachycardia, -mrg. Radial pulses intact and symmetrical. Abdominal: Tender at the left upper quadrant, left flank Results & Data Results & Data Vital Signs (Past 12 Hours) Vital Signs Temp Pulse Pulse Resp BP BP Pulse Ox 06/28/25 06:00 92 H 17 170/85 H 96 06/28/25 05:00 95 H 20 145/79 H 95 06/28/25 04:00 36.6 C 100 H 14 147/80 H 97 06/28/25 03:00 103 H 19 145/78 H 95 06/28/25 02:27 91 H 18 169/88 H 95 06/28/25 01:00 93 H 19 164/89 H 96 06/28/25 00:00 36.9 C 90 18 154/85 H 96 06/27/25 23:00 89 17 175/84 H 96 06/27/25 22:00 88 17 148/84 H 97 06/27/25 21:00 88 18 153/78 H 96 06/27/25 20:00 36.8 C 90 19 165/78 H 95 O2 Del Method 06/28/25 06:00 Room Air 06/28/25 05:00 Room Air 06/28/25 04:00 Room Air 06/28/25 03:00 Room Air 06/28/25 02:27 Room Air 06/28/25 01:00 Room Air 06/28/25 00:00 Room Air 06/27/25 23:00 Room Air 06/27/25 22:00 Room Air 06/27/25 21:00 Room Air 06/27/25 20:00 Room Air PG Care Time/CCT Total # of Minutes Spent Total Time Spent with Patient: Total time spent is greater than 50% in coordination of care (as documented) at patient's floor/unit and/or counseling patient: Coding Level of Care Code 32620 SUB INP/OBS CARE 3/50MIN Diagnoses Sepsis A41.9; R65.20; N17.9 Acute renal failure type: unspecified Sepsis acute organ dysfunction status: with acute organ dysfunction Sepsis type: sepsis due to unspecified organism Severe sepsis acute organ dysfunction type: acute renal failure Severe sepsis shock status: without septic shock Pancreatitis K85.90 Acute pancreatitis complication: unspecified Chronicity: acute Pancreatitis type: unspecified pancreatitis type DKA (diabetic ketoacidosis) E13.10 Diabetes mellitus complication detail: without coma Diabetes mellitus type: other specified (including YANELY) HERNANDEZ (acute kidney injury) N17.9 (1) Sepsis Acute renal failure type: unspecified Sepsis acute organ dysfunction status: with acute organ dysfunction Sepsis type: sepsis due to unspecified organism Severe sepsis acute organ dysfunction type: acute renal failure Severe sepsis shock status: without septic shock Qualified Code(s): A41.9 - Sepsis, unspecified organism; R65.20 - Severe sepsis without septic shock; N17.9 - Acute kidney failure, unspecified (2) Pancreatitis Acute pancreatitis complication: unspecified Chronicity: acute Pancreatitis type: unspecified pancreatitis type Qualified Code(s): K85.90 - Acute pancreatitis without necrosis or infection, unspecified (3) DKA (diabetic ketoacidosis) Diabetes mellitus complication detail: without coma Diabetes mellitus type: other specified (including YANELY) Qualified Code(s): E13.10 - Other specified diabetes mellitus with ketoacidosis without coma
[2025-06-28] MEDS: ENOXAPARIN INJ 40 MG/0.4 ML SYR SQ SCH (08:32)
[2025-06-28] MEDS: LANTUS PER UNIT CHARGE SC ONE ×2 (08:33→21:07)
--- NOTE | 2025-06-28 12:42 | Pharmacy Report ---
Pharmacy Glycemic Short Note 2 - Date of Service June 28, 2025 - Glycemic Short BSG Results (Last 24 hours): 06/27/25 06/27/25 06/27/25 12:45 15:17 16:54 Glucose 144 H 155 H POC Glucose 127 H 06/27/25 06/28/25 06/28/25 20:10 04:25 07:19 Glucose 226 H POC Glucose 174 H 277 H 06/28/25 06/28/25 07:19 11:28 Glucose POC Glucose 300 H 280 H OUTPATIENT ANTIDIABETIC REGIMEN: * Januvia 25 mg daily on fill history * A1c 14.3% ASSESSMENT: * Admitted with DKA/pancreatitis. Initial BSG in the 500s, anion gap now resolved, Bicarb 16. * Began transition off of insulin infusion with 30 units of lantus. Insulin infusion steady @ 6 units/hr, although BSGs now downtrending with D51/2NS. * Overlapped with lantus ~2 hours, insulin infusion stopped as patient going to nuclear medicine. Will recheck BSG to check for rebound/dextrose containing fluids also stopped. * Will begin novolog weight stress 3 parameters 06/28 * BSGs remained fairly well controlled throughout the day yesterday but fasting this morning was 277-300mg/dL. However, patient drank orange juice ~40 min prior to BSG check, thus skewing the true degree of hyperglycemia. * Lunch BSG was still elevated at 280 mg/dL. However per RN, patient is unwilling to eat due to abdominal pain and thus the only thing she has eaten today has been the orange juice. Given the higher dose of Lantus this morning and tenuous PO intake, will conservatively manage hyperglycemia for the rest of the day and monitor trend. PLAN FOR INPATIENT GLYCEMIC CONTROL: * Hold outpatient oral diabetes medications * Basal insulin * Lantus 20 units this morning * Scale this evening- See MAR for details * Bolus insulin * NovoLog per scale ACHS or Q6hrs while NPO * Goal Range: Low 120 mg/dL - High 150 mg/dL * Correction Factor: 30 mg/dL/unit * Nutritional / Prandial insulin per carb ratio of 1 unit per 10 grams CHO consumed
[2025-06-28] MEDS: PENDING D5 1/2NS+40mEq KCL IVF SCH (16:46)
[2025-06-28] MEDS: PENDING 1/2NSS+40mEq KCL IVF SCH (16:46)
--- NOTE | 2025-06-28 18:28 | Electrocardiogram Report ---
Test Reason : Blood Pressure : */* mmHG Vent. Rate : 123 BPM Atrial Rate : 123 BPM P-R Int : 130 ms QRS Dur : 82 ms QT Int : 312 ms P-R-T Axes : 74 49 97 degrees QTcB Int : 446 ms Sinus tachycardia Right atrial enlargement Nonspecific ST and T wave abnormality Abnormal ECG No previous ECGs available Confirmed by Larry Mccracken ([id number]) on 06/28/2025 6:27:43 PM Referred By: Confirmed By: Larry Mccracken
--- NOTE | 2025-06-28 18:28 | Electrocardiogram Report ---
Test Reason : Blood Pressure : */* mmHG Vent. Rate : 90 BPM Atrial Rate : 90 BPM P-R Int : 114 ms QRS Dur : 96 ms QT Int : 328 ms P-R-T Axes : 32 38 79 degrees QTcB Int : 401 ms Normal sinus rhythm Nonspecific T wave abnormality When compared with ECG of 26-Jun-2025 17:22, Nonspecific T wave abnormality has replaced inverted T waves in Lateral leads Confirmed by Larry Mccracken ([id number]) on 06/28/2025 6:28:09 PM Referred By: REFERRED SELF Confirmed By: Larry Mccracken
--- NOTE | 2025-06-28 18:28 | Electrocardiogram Report ---
Test Reason : Blood Pressure : */* mmHG Vent. Rate : 78 BPM Atrial Rate : 78 BPM P-R Int : 130 ms QRS Dur : 92 ms QT Int : 368 ms P-R-T Axes : 19 44 77 degrees QTcB Int : 419 ms Normal sinus rhythm Nonspecific T wave abnormality When compared with ECG of 26-Jun-2025 22:08, No significant change was found Confirmed by Larry Mccracken ([id number]) on 06/28/2025 6:28:27 PM Referred By: REFERRED SELF Confirmed By: Larry Mccracken
[2025-06-29 05:15] LABS: Hematocrit (blood only) 27.9 % (37.0-47.0); Hemoglobin 9.2 g/dl (12.0-16.0); Immature Granulocytes # (auto) 0.07 K/uL (0.01-0.20); Immature Granulocytes % (auto) 0.8 %; Mean Corpuscular Hemoglobin 26.8 pg (25.0-34.0); Mean Corpuscular Volume 81.3 fL (80.0-100.0); Platelet Count 469 K/uL (130-400); RDW Standard Deviation 44.2 fL (36.4-46.3); Red Blood Count 3.43 M/uL (4.20-5.40); White Blood Count 9.19 K/ul (4.8-10.8)
[2025-06-29 05:39] LABS: Alanine Aminotransferase 4.0 U/L (7-52); Albumin Globulin Ratio 0.8 (0.9-2); Alkaline Phosphatase 103.0 U/L (34-104); Anion Gap 5.0 (3-11); Bilirubin,Total 0.3 mg/dl (0.2-1.0); Blood Urea Nitrogen 10.0 mg/dl (6-23); Calcium 10.1 mg/dl (8.6-10.3); Carbon Dioxide 22.0 mmol/L (21-32); Chloride 103.0 mmol/L (98-107); Creatinine Clr Calc Pharmacy 58.5 ml/min; Globulin 3.1 gm/dl (2.5-4.0); Glucose 141.0 mg/dl (70-99(Fasting)); Magnesium 1.6 mg/dl (1.7-2.4); Potassium 3.4 mmol/L (3.5-5.1); Sodium 130.0 mmol/L (136-145); Total Protein 5.7 gm/dl (6.0-8.3)
[2025-06-29 05:40] LABS: INR 1.0 (0.9-1.1); Partial Thromboplastin Time 29 Seconds (21-31); Prothrombin Time 11.1 Seconds (9.0-12.0)
[2025-06-29] MEDS: LANTUS PER UNIT CHARGE SC SCH (08:41)
[2025-06-29] MEDS: POTASSIUM CHLORIDE CRTAB 20 MEQ TABCR PO STA ×2 (08:43→15:31)
[2025-06-29] MEDS: MAGNESIUM OXIDE 400 MG TAB PO SCH (10:30)
--- NOTE | 2025-06-29 11:22 | Pharmacy Report ---
Pharmacy Glycemic Short Note 2 - Date of Service June 29, 2025 - Glycemic Short BSG Results (Last 24 hours): 06/28/25 06/28/25 06/28/25 11:28 16:24 20:06 Glucose POC Glucose 280 H 211 H 156 H 06/29/25 06/29/25 06/29/25 04:03 07:33 11:08 Glucose 141 H POC Glucose 148 H 153 H OUTPATIENT ANTIDIABETIC REGIMEN: * Januvia 25 mg daily on fill history * A1c 14.3% ASSESSMENT: 06/29: * BSGs largely within goal the last 24h: [phone]/dL. Received 20 units of basal and 13 units of bolus insulin yesterday. * Continues with decreased PO intake. * Lantus decreased empirically to 15 units this AM given poor intake the last couple of days. Will likely need titrated once she is eating meals consistently again- Reassess daily. No change to Novolog. 06/28 * BSGs remained fairly well controlled throughout the day yesterday but fasting this morning was 277-300mg/dL. However, patient drank orange juice ~40 min prior to BSG check, thus skewing the true degree of hyperglycemia. * Lunch BSG was still elevated at 280 mg/dL. However per RN, patient is unwilling to eat due to abdominal pain and thus the only thing she has eaten today has been the orange juice. Given the higher dose of Lantus this morning and tenuous PO intake, will conservatively manage hyperglycemia for the rest of the day and monitor trend. 06/27: * Admitted with DKA/pancreatitis. Initial BSG in the 500s, anion gap now resolved, Bicarb 16. * Began transition off of insulin infusion with 30 units of lantus. Insulin infusion steady @ 6 units/hr, although BSGs now downtrending with D51/2NS. * Overlapped with lantus ~2 hours, insulin infusion stopped as patient going to nuclear medicine. Will recheck BSG to check for rebound/dextrose containing fluids also stopped. * Will begin novolog weight stress 3 parameters PLAN FOR INPATIENT GLYCEMIC CONTROL: * Hold outpatient oral diabetes medications * Basal insulin * Lantus 15 units qAM * Bolus insulin * NovoLog per scale ACHS or Q6hrs while NPO * Goal Range: Low 120 mg/dL - High 150 mg/dL * Correction Factor: 30 mg/dL/unit * Nutritional / Prandial insulin per carb ratio of 1 unit per 10 grams CHO consumed
--- NOTE | 2025-06-29 14:31 | Hospitalist Progress Note ---
Date of Service June 29, 2025 Assessment & Plan (1) Sepsis: (2) Pancreatitis: (3) DKA (diabetic ketoacidosis): (4) HERNANDEZ (acute kidney injury): Plan The patient is a 54-year-old female with a past medical history including diabetes mellitus, PAD, uncontrolled diabetes mellitus, B12 deficiency, anxiety, GERD, history of pancreatitis, and tobacco abuse. The patient presents to the emergency department with complaint of fevers, nausea, vomiting, generalized abdominal pain, and left flank pain worsening over the past week. She reports that the symptoms are similar to previous episodes of pancreatitis and urinary tract infection which she has had in the past, several years ago. Workup in the emergency department included an abnormal lipase of 2569, hemoglobin A1c 14.3, calcium 13.1, sodium 122, glucose 582, creatinine 1.57. Imaging included a CT scan of abdomen pelvis suggestive of acute pancreatitis. By the emergency department she was started on an insulin drip, was given normal saline 2 L IV bolus, Tylenol 1 g IV, famotidine 20 mg IV, Zofran 4 mg IV, morphine 4 mg IV x 2, and ceftriaxone 2 g IV. She was then referred for evaluation for admission. DKA, resolved Transition to SQ protocol Uncontrolled type II DM A1c greater than 14%. Not tolerate metformin as an outpatient. Only took 1 dose of Januvia prior to coming into the hospital. - Doing well on SQ, continue. Lantus was decreased to 15 units, has had poor increase which is slightly improved this morning. Will reassess needs as diet improves. Continue Lantus 15 units every morning, CF 30, CR 1-10 for now. Appreciate pharmacy glycemic consultation BS educator following. Set up with [employer]. Appreciate recommendations and care Pancreatitis, progressing not yet at p.o. intake goal Lipase 2569 CTA/P suggestive of acute pancreatitis. . Liver ultrasound with no gallstones, gallbladder sludge, no convincing evidence for acute cholecystitis No bilirubin/transaminitis suggestive of obstructive pathology although passed stone is possible HIDA scan normal Lipids elevated, although lower than expected to be direct cause of acute pancreatitis calcium was elevated with severe volume contraction. May have contributed, this is improving with fluids. Calcium was elevated on admission, this is normalized with fluids. Vitamin D level is pending. PTH was low No history of alcohol use Clinically progressing 06/29, diet advanced. Hyponatremia, improving Some hyponatremia separate from hyperglycemia on admit Urine random sodium 50, urine osmolality 335, , Serum osmolality 308, 275 post fluids Net 5.5 L positive since admission, was profoundly volume contracted with DKA on admission. Volume status improved, 2865 cc 24-hour UOP last 24 hours Continue p.o. as tolerated, liberalize salt intake, trend daily - Random cortisol 21.77, inconsistent with adrenal insufficiency Sodium improved, 130 on 06/29 HERNANDEZ, resolved Baseline approximately 0.79, creatinine initially 1.57 Trend daily Adrenal incidentaloma,? Renal mass Nonemergent MRI follow-up Hypercalcemia, improved. Calcium on admission 13.1 in the setting of some volume contraction and HHS PTH suppressed at 5.7 Patient takes vitamin D weekly supplementation as outpatient 125 vitamin D levels are pending. 25hydroxyvitamin D is low. Serum protein levels are normal. Vitamin D is low. PTH appropriately suppressed. Calcium levels have completely normalized with fluids, suspect elevation with severe volume contraction and HHS. When progressed outpatient would get follow-up BMP within 1 month, and if again elevated can follow-up with PTH RP/SPEP/UPEP/free chain assay at that time Chronic stable issues Tobacco abuse: Nicotine patch, continue outpatient counseling COPD: Outpatient pulmonary follow-up. No acute exacerbation Protein calorie malnutrition: Dietitian consulted. Liberalize salt intake as noted GERD: Continue PPI Hypertension: Continue Norvasc Ambulatory dysfunction: PT/OT DVT prophylaxis: Lovenox Full code Admission and Anticipated Discharge Date Admission Date: June 26, 2025 Subjective Still with some discomfort and using IV cane control, but notes a significant improvement from previous day. Was able to have clears for breakfast without worsened pain. Agreeable to trial of full liquids with dinner. No fevers chills or sweats. No other questions or concerns. at bedside notes that clinically she looks much better and appears to be progressing. Discussing CGM with adult educator at time of initial visit Physical Exam Physical Exam: General: A&Ox3. NAD. Cooperative. HEENT: Atraumatic, normocephalic. Patient hearing grossly intact Pulm: CTAB A&P. -wheezes, -rales, -rhonchi. Symmetrical chest rise. No increase in work of breathing. No respiratory distress. Cardiac: Regular, mild tachycardia, -mrg. Radial pulses intact and symmetrical. Abdominal: Improved tenderness in the left upper quadrant/flank compared to prior. No rebound/guarding PG Care Time/CCT Total # of Minutes Spent Total Time Spent with Patient: Total time spent is greater than 50% in coordination of care (as documented) at patient's floor/unit and/or counseling patient: Coding Level of Care Code 79420 SUB INP/OBS CARE 3/50MIN Diagnoses Sepsis A41.9; R65.20; N17.9 Acute renal failure type: unspecified Sepsis acute organ dysfunction status: with acute organ dysfunction Sepsis type: sepsis due to unspecified organism Severe sepsis acute organ dysfunction type: acute renal failure Severe sepsis shock status: without septic shock Pancreatitis K85.90 Acute pancreatitis complication: unspecified Chronicity: acute Pancreatitis type: unspecified pancreatitis type DKA (diabetic ketoacidosis) E13.10 Diabetes mellitus complication detail: without coma Diabetes mellitus type: other specified (including YANELY) HERNANDEZ (acute kidney injury) N17.9 (1) Sepsis Acute renal failure type: unspecified Sepsis acute organ dysfunction status: with acute organ dysfunction Sepsis type: sepsis due to unspecified organism Severe sepsis acute organ dysfunction type: acute renal failure Severe sepsis shock status: without septic shock Qualified Code(s): A41.9 - Sepsis, unspecified organism; R65.20 - Severe sepsis without septic shock; N17.9 - Acute kidney failure, unspecified (2) Pancreatitis Acute pancreatitis complication: unspecified Chronicity: acute Pancreatitis type: unspecified pancreatitis type Qualified Code(s): K85.90 - Acute pancreatitis without necrosis or infection, unspecified (3) DKA (diabetic ketoacidosis) Diabetes mellitus complication detail: without coma Diabetes mellitus type: other specified (including YANELY) Qualified Code(s): E13.10 - Other specified diabetes mellitus with ketoacidosis without coma
[2025-06-29] MEDS: MAGNESIUM SULFATE / D5W 1 GM/100 ML BAG IV SCH (14:44)
[2025-06-29] MEDS: POTASSIUM CHLORIDE 20 MEQ/15 ML UDC PO STA (15:15)
[2025-06-30 05:26] LABS: Hematocrit (blood only) 27.5 % (37.0-47.0); Hemoglobin 8.8 g/dl (12.0-16.0); Mean Corpuscular Hemoglobin 26.6 pg (25.0-34.0); Mean Corpuscular Volume 83.1 fL (80.0-100.0); Platelet Count 421 K/uL (130-400); RDW Standard Deviation 46.6 fL (36.4-46.3); Red Blood Count 3.31 M/uL (4.20-5.40); White Blood Count 7.81 K/ul (4.8-10.8)
[2025-06-30 05:43] LABS: Alanine Aminotransferase 3.0 U/L (7-52); Albumin Globulin Ratio 0.9 (0.9-2); Alkaline Phosphatase 144.0 U/L (34-104); Anion Gap 5.0 (3-11); Bilirubin,Total 0.3 mg/dl (0.2-1.0); Blood Urea Nitrogen 8.0 mg/dl (6-23); Calcium 9.9 mg/dl (8.6-10.3); Carbon Dioxide 21.0 mmol/L (21-32); Chloride 106.0 mmol/L (98-107); Creatinine Clr Calc Pharmacy 65.6 ml/min; Globulin 3.1 gm/dl (2.5-4.0); Glucose 96.0 mg/dl (70-99(Fasting)); Potassium 4.2 mmol/L (3.5-5.1); Sodium 132.0 mmol/L (136-145); Total Protein 5.8 gm/dl (6.0-8.3)
[2025-06-30 07:24] VITALS: RESP 18; O2SAT 98
[2025-06-30] MEDS ORDERED: DICLOFENAC SOD 1% GEL 100 GM TUBE EXT PRN (09:27)
[2025-06-30] MEDS: LIDOCAINE 5% 1 PATCH TD STA (10:05)
[2025-06-30] MEDS: LANTUS PER UNIT CHARGE SC SCH (10:08)
--- NOTE | 2025-06-30 10:14 | Discharge Summary ---
Discharge Summary Date of Service June 30, 2025 Principal Dx & Hospital Course #1 = Principal Diagnosis (1) Sepsis: (2) Pancreatitis: (3) DKA (diabetic ketoacidosis): (4) HERNANDEZ (acute kidney injury): Plan The patient is a 54-year-old female with a past medical history including diabetes mellitus, PAD, uncontrolled diabetes mellitus, B12 deficiency, anxiety, GERD, history of pancreatitis, and tobacco abuse. The patient presents to the emergency department with complaint of fevers, nausea, vomiting, generalized abdominal pain, and left flank pain worsening over the past week. She reports that the symptoms are similar to previous episodes of pancreatitis and urinary tract infection which she has had in the past, several years ago. Workup in the emergency department included an abnormal lipase of 2569, hemoglobin A1c 14.3, calcium 13.1, sodium 122, glucose 582, creatinine 1.57. Imaging included a CT scan of abdomen pelvis suggestive of acute pancreatitis. By the emergency department she was started on an insulin drip, was given normal saline 2 L IV bolus, Tylenol 1 g IV, famotidine 20 mg IV, Zofran 4 mg IV, morphine 4 mg IV x 2, and ceftriaxone 2 g IV. She was then referred for evaluation for admission. To do as outpatient: 1. Continue Lantus 8 units daily each morning 2. Continue insulin aspart with meals. 1-3 units based on meal size/content, may add 1 additional unit if needed based on blood sugar. Total daily dose requirement while inpatient around 15 units 3. Follow-up with PCP within 1 week 4. Continue Dexcom use. Review blood sugars with PCP at follow-up. Adjust insulin regimen as needed 5. Routine follow-up of recurrent pancreatitis which occurred in the setting of severe volume contraction, HHS, and transient hypercalcemia. 6. Repeat BMP/calcium level/PTH as outpatient. Patient was hypercalcemic with suppressed PTH on admission, and low vitamin D levels. Calcium levels normalized with volume correction, and vitamin D supplementation was added on discharge. If recurrent hypercalcemia/PTH suppression can follow-up with PTHRP/SPEP/UPEP/free chain assay. Calcium was 9.9 at time of discharge. Suspected adrenal adenoma was noted as further discussed below 7. 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 Nonpathologically lymph nodes at 0.9 cm. Adrenal incidentaloma/mass between 1 and 2 cm on initial imaging. Recommend outpatient follow-up with adrenal protocol MRI. DKA, resolved Transitioned to SQ protocol Uncontrolled type II DM A1c greater than 14%. Not tolerate metformin as an outpatient. Only took 1 dose of Januvia prior to coming into the hospital. - Resistant to subcu insulin, did well with basal bolus regimen BS educator following. Set up with Dexcom. Insulin regimen as noted above Pancreatitis, progressing not yet at p.o. intake goal Lipase 2569 CTA/P suggestive of acute pancreatitis. . Liver ultrasound with no gallstones, gallbladder sludge, no convincing evidence for acute cholecystitis No bilirubin/transaminitis suggestive of obstructive pathology although passed stone is possible HIDA scan normal Lipids elevated, although lower than expected to be direct cause of acute pancreatitis calcium was elevated with severe volume contraction. May have contributed, this is improving with fluids. Calcium was elevated on admission, this is normalized with fluids. Vitamin D level is pending. PTH was low No history of alcohol use Rating regular diet at time of discharge Hyponatremia, improving Some hyponatremia separate from hyperglycemia on admit Urine random sodium 50, urine osmolality 335, , Serum osmolality 308, 275 post fluids Net 5.5 L positive since admission, was profoundly volume contracted with DKA on admission. Volume status improved, 2865 cc 24-hour UOP last 24 hours Continue p.o. as tolerated, liberalize salt intake, trend daily - Random cortisol 21.77, inconsistent with adrenal insufficiency Sodium improved on serial exams HERNANDEZ, resolved Baseline approximately 0.79, creatinine initially 1.57 Trend daily Adrenal incidentaloma,? Renal mass 1.9 cm. Recommended for follow-up adrenal protocol interval MRI. Hypercalcemia, improved. Calcium on admission 13.1 in the setting of some volume contraction and HHS PTH suppressed at 5.7 Patient takes vitamin D weekly supplementation as outpatient 125 vitamin D levels are pending. 25hydroxyvitamin D is low. Serum protein levels are normal. Vitamin D is low. PTH appropriately suppressed. Calcium levels have completely normalized with fluids, suspect elevation with severe volume contraction and HHS. When progressed outpatient would get follow-up BMP within 1 month, and if again elevated can follow-up with PTH RP/SPEP/UPEP/free chain assay at that time Chronic stable issues Tobacco abuse: Nicotine patch, continue outpatient counseling COPD: Outpatient pulmonary follow-up. No acute exacerbation Protein calorie malnutrition: Dietitian consulted. Liberalize salt intake as noted GERD: Continue PPI Hypertension: Continue Norvasc Ambulatory dysfunction: PT/OT DVT prophylaxis: Lovenox Full code Admission HPI Per Admitting Provider The patient is a 54-year-old female with a past medical history including diabetes mellitus, PAD, uncontrolled diabetes mellitus, B12 deficiency, anxiety, GERD, history of pancreatitis, and tobacco abuse. The patient presents to the emergency department with complaint of fevers, nausea, vomiting, generalized abdominal pain, and left flank pain worsening over the past week. She reports that the symptoms are similar to previous episodes of pancreatitis and urinary tract infection which she has had in the past, several years ago. Workup in the emergency department included an abnormal lipase of 2569, hemoglobin A1c 14.3, calcium 13.1, sodium 122, glucose 582, creatinine 1.57. Imaging included a CT scan of abdomen pelvis suggestive of acute pancreatitis. By the emergency department she was started on an insulin drip, was given normal saline 2 L IV bolus, Tylenol 1 g IV, famotidine 20 mg IV, Zofran 4 mg IV, morphine 4 mg IV x 2, and ceftriaxone 2 g IV. She was then referred for evaluation for admission Discharge Exam General: A&Ox3. NAD. Cooperative. HEENT: Atraumatic, normocephalic. Vision and hearing grossly intact Pulm: CTAB A&P. -wheezes, -rales, -rhonchi. Symmetrical chest rise. No increased work of breathing. No respiratory distress. Cardiac: RRR, -mrg. Radial pulses intact and symmetrical. Abdominal: Soft, nondistended. Minimal left upper quadrant tenderness to palpation Patient does have right lower back tenderness to palpation. On exam she is a focal area of increased muscle tone/tension and this is easily located with light superficial palpation and reproduces the pain patient had been describing earlier. This appears to be separate from her abdominal/pancreatitis pain, there is no CVA tenderness to percussion. Discharge Plan Discharge Items Patient Disposition: Home - Self-Care Reason For Visit: SEPSIS, DKA, PANCREATITIS, HYPERCALCEMIA Discharge Diagnosis: HHS Pancreatitis Condition on Discharge: Good Activity: Resume your previous activity Non-emergency contact: Primary Care Provider Call non-emergency contact if: you have any medication questions, your symptoms worsen and your pain is not controlled Follow-up/Referrals: Suzy Burdick, C.R.N.P [Primary Care Provider] - Diet: Regular Addtl Attending Provider Instructions: You were seen in the hospital for severe uncontrolled diabetes, and pancreatitis. You have been started on insulin therapy for diabetes. Please continue to use your Dexcom as taught by the community health educator. You have been prescribed Dexcom G7 sensors, the sensor should be changed every 10 days. If there is a concern that your sensor is malfunctioning or not working correct ly please check a blood sugar using your regular blood sugar glucose spot test device. You have been prescribed long-acting insulin, insulin glargine. Please take 8 units of insulin glargine once daily in the morning. You have been prescribed short acting insulin with meals. With each meal you should take between 1 and 3 units of insulin. For smaller/leaner meals without many carbohydrates you should take 1 unit. For regular meals take 2 units. If you have increased carbs/sugars in a meal you may take up to 3 units. If your blood sugar before your meal is greater than 180 you may take 1 additional unit on top of this. If your blood sugar is low (less than 70), please drink juice as directed and recheck your blood sugar twice over 2 hours. Do not take insulin if your blood sugar is low. If your blood sugars are consistently low (less than 70), or consistently high (greater than 200) please contact your primary care physician for additional recommendations. If you have more than 2 blood sugar measurements in a row greater than 300 please contact your primary care physician for recommendations, or present to the ER for treatment and medication adjustments. Low blood sugar can be life-threatening, and there is a risk of low blood sugar while on insulin. If your blood sugars less than 70 you should drink juice and recheck your blood sugar as above, and discuss this with your PCP. Life-threatening low blood sugar can cause seizures and unconsciousness. You have been prescribed a glucagon pen for your family in the event that you have a low blood sugar leading to loss of consciousness. If you were to ever have low blood sugar and loss of consciousness this should be administered as taught to you by your or family member. If this is needed 911 should be called immediately. A glucagon pen may restore consciousness, but only for around 15 minutes and it is important if this is used you immediately drink some juice and still evaluated by emergency services. You had a recurrent episode of pancreatitis. This improved with fluids and supportive care. Avoid alcohol use in the future. You should have follow-up with your PCP to review your diabetes plan, and blood sugars following discharge. Please see your PCP within 1 week. You were noted to have a adrenal mass suspicious for adenoma of ~1.7cm. It is recommended to followup with a non-emergent renal protocol MRI to further evaluate this If you develop any new or worsening symptoms including fever, chills, sweats, chest pain, chest pressure, difficulty breathing, uncontrolled nausea/vomiting, rash, wheezing, passing out or nearly passing out, bleeding, black/bloody bowel movements, or other new or concerning symptoms please call your primary care physician, or call 911 for re-evaluation in the emergency department if you are very concerned. Pending Studies at Discharge: No Stand-Alone Forms: My [facility] [email or web address], Smoking Cessation Medications and DC Order Prescriptions: New insulin glargine [Lantus Solostar U-100 Insulin] 100 unit/mL (3 mL) insulin pen 8 unit subcut QAM Qty: 15 1RF insulin aspart U-100 [Novolog FlexPen U-100 Insulin] 100 unit/mL (3 mL) insulin pen See Rx Instructions .ROUTE .COMPLEX Qty: 15 0RF Rx Instructions: Take 1 to 3 units of aspart insulin with meals. If you have a lean meal, take around 1 unit. If you have higher amounts of carbs in your meal you may take up to 3 units. If your blood sugars are consistently greater than 200 please contact your PCP for recommendations. (DME) pen needle, diabetic [Pen Needle] 32 gauge x 5/32" needle See Rx Instructions .Route Qty: 100 1RF Rx Instructions: for use 4 times daily (DME) Dexcom G7 Sensor Device See Rx Instructions .Route Qty: 3 2RF Rx Instructions: change every 10 days Glucagon Emergency Kit (human) 1 mg recon soln 1 mg IM ONCE PRN (Reason: hypoglycemia, loss of conciousness) Qty: 1 0RF Continued magnesium oxide [MagOx] 400 mg (241.3 mg magnesium) tablet 400 mg PO DAILY ibuprofen 600 mg tablet 600 mg PO Q8H PRN folic acid 0.8 mg capsule 0.4 mg PO DAILY escitalopram oxalate [Lexapro] 10 mg tablet 10 mg PO DAILY cyanocobalamin (vitamin B-12) 1,000 mcg capsule 1,000 mcg PO DAILY cholecalciferol (vitamin D3) 25 mcg (1,000 unit) capsule 25 mcg PO DAILY gabapentin 100 mg capsule 100 mg PO HS esomeprazole magnesium [Nexium] 20 mg capsule,delayed release(DR/EC) 20 mg PO DAILY Changed aspirin 325 mg tablet 81 mg PO QAM Qty: 0 0RF Admission Data Admit Date/Time: 06/26/25 21:29 Attending Provider: Matthew Whiteside Admit Provider: Shady Serna Primary Care Provider: Suzy Burdick Other Providers: Shady Serna; José Miguel Weems; Amparo Story; Angelo Goodman; Jessica Blue; Darius,Shabnam Celestin; Carlitos Wilder; Angelo Arnold; Tim Lucero; Elodia Perez; Phyllis Esparza; Arianna Vickers; Carloz Velazquez; Frandy Singletary Hospital Stay Data Consultations 06/26/25 19:42 ED Decision to Admit Stat 06/26/25 22:03 Consult Barrel Raiser Routine 06/26/25 23:10 Consult Endocrinology Routine Diagnostic Imagining Performed 06/26/25 18:52 CT abd pelvis wo con Stat 06/27/25 US liver Urgent Discharge Instructions Given to Patient (Per Discharging Provider) You were seen in the hospital for severe uncontrolled diabetes, and pancreatitis. You have been started on insulin therapy for diabetes. Please continue to use your Dexcom as taught by the community health educator. You have been prescribed Dexcom G7 sensors, the sensor should be changed every 10 days. If there is a concern that your sensor is malfunctioning or not working correctly please check a blood sugar using your regular blood sugar glucose spot test device. You have been prescribed long-acting insulin, insulin glargine. Please take 8 units of insulin glargine once daily in the morning. You have been prescribed short acting insulin with meals. With each meal you should take between 1 and 3 units of insulin. For smaller/leaner meals without many carbohydrates you should take 1 unit. For regular meals take 2 units. If you have increased carbs/sugars in a meal you may take up to 3 units. If your blood sugar before your meal is greater than 180 you may take 1 additional unit on top of this. If your blood sugar is low (less than 70), please drink juice as directed and recheck your blood sugar twice over 2 hours. Do not take insulin if your blood sugar is low. If your blood sugars are consistently low (less than 70), or consistently high (greater than 200) please contact your primary care physician for additional recommendations. If you have more than 2 blood sugar measurements in a row greater than 300 please contact your primary care physician for recommendations, or present to the ER for treatment and medication adjustments. Low blood sugar can be life-threatening, and there is a risk of low blood sugar while on insulin. If your blood sugars less than 70 you should drink juice and recheck your blood sugar as above, and discuss this with your PCP. Life-threatening low blood sugar can cause seizures and unconsciousness. You have been prescribed a glucagon pen for your family in the event that you have a low blood sugar leading to loss of consciousness. If you were to ever have low blood sugar and loss of consciousness this should be administered as taught to you by your or family member. If this is needed 911 should be called immediately. A glucagon pen may restore consciousness, but only for around 15 minutes and it is important if this is used you immediately drink some juice and still evaluated by emergency services. You had a recurrent episode of pancreatitis. This improved with fluids and supportive care. Avoid alcohol use in the future. You should have follow-up with your PCP to review your diabetes plan, and blood sugars following discharge. Please see your PCP within 1 week. You were noted to have a adrenal mass suspicious for adenoma of ~1.7cm. It is recommended to followup with a non-emergent renal protocol MRI to further evaluate this If you develop any new or worsening symptoms including fever, chills, sweats, chest pain, chest pressure, difficulty breathing, uncontrolled nausea/vomiting, rash, wheezing, passing out or nearly passing out, bleeding, black/bloody bowel movements, or other new or concerning symptoms please call your primary care physician, or call 911 for re-evaluation in the emergency department if you are very concerned. Total Time Total Time Spent Total Time Spent (In Minutes): Time spend day of discharge 70 minutes including direct patient care, documentation, review of labs and images, and coordination of care. Coding Level of Care Code 62106 INP/OBS DISCH >30 MIN Diagnoses Sepsis A41.9; R65.20; N17.9 Acute renal failure type: unspecified Sepsis acute organ dysfunction status: with acute organ dysfunction Sepsis type: sepsis due to unspecified organism Severe sepsis acute organ dysfunction type: acute renal failure Severe sepsis shock status: without septic shock Pancreatitis K85.90 Acute pancreatitis complication: unspecified Chronicity: acute Pancreatitis type: unspecified pancreatitis type DKA (diabetic ketoacidosis) E13.10 Diabetes mellitus complication detail: without coma Diabetes mellitus type: other specified (including YANELY) HERNANDEZ (acute kidney injury) N17.9
[2025-06-30 11:12] VITALS: PULSE 84; TEMP 98.4
[2025-06-30 15:25] VITALS: BP 137/77
[2025-06-30] MEDS ORDERED: REMOVE LIDODERM PATCH SCH (21:00)
[2025-07-04 02:23] LABS: Vitamin D2,1,25 <8 pg/mL
== END 2025-06-30 15:43 | disposition home or self-care (01) | DRG 871 ==
LOC: ED 16:56 → SUATTDRO 21:29 → 1E 21:29 → 2S 06-30 06:20